=== PATIENT | female | born 1955 | race American Indian/Alaskan Native ===

== ENCOUNTER 2016-11-04 05:03 | Emergency (ER) | payer SELFPAY ==
--- NOTE | 2016-11-04 07:00 | Emergency Department Report ---
Chief Complaint: Sore Throat Stated Complaint: THROAT PAIN Time Seen by Provider: 11/04/16 06:58 - HPI History of Present Illness: Patient family reports that she is having sore throat, neck pain and chest pain over the last couple days. - ROS Review of Systems: All systems are negative unless stated in HPI above. - Exam Vital Signs: Vital Signs 11/04/16 05:17 Temperature 98.7 F Pulse Rate 84 Blood Pressure 155/93 O2 Sat by Pulse 96 Oximetry Respirations of 18 Physical Exam: General: A 51-year-old female, well-nourished well-developed in no acute distress. CV: S1, S2. Regular rate and rhythm. Neck : supple with full ROM MSE screening note: Focused history and physical exam performed. Due to findings the following was ordered: ED Medical Decision Making - Medical Decision Making MDM: Patient's screening by provider, chest pain protocol implemented, strep test is negative. ED Disposition for MSE Condition: Stable Referrals: PRIMARY CARE, [Primary Care Provider] - 3-5 Days
[2016-11-04] MEDS ORDERED: NORCO 5/325 ONE (07:02)
[2016-11-04 07:33] LABS: Basophils % (Auto) 0.6 % (0.0-1.8); Eosinophils % (Auto) 4.1 % (0.0-4.3); Hematocrit 41.7 % (30.3-42.9); Hemoglobin 13.6 gm/dl (10.1-14.3); Mean Corpuscular HGB Conc 33 % (30-34); Mean Corpuscular Hemoglobin 29 pg (28-32); Mean Corpuscular Volume 89 fl (79-97); Platelet Count 169 K/mm3 (140-440); Red Cell Distribution Width 13.4 % (13.2-15.2); White Blood Count 6.2 K/mm3 (4.5-11.0)
--- NOTE | 2016-11-04 07:37 | Emergency Department Report ---
HPI - General Chief Complaint: Sore Throat Time Seen by Provider: 11/04/16 06:58 - HPI HPI: Patient is a 61-year-old female with no past medical history presents to ED complaining of throat pain for several months. Patient states she's been taken to [facility] this past months. Patient states that she began taking 2 Tylenol tablets which didn't became too strong for her so she started taking 1 Tylenol tablets. Patient states she kept taking lozenges and after a while she started feeling me and sternal pain with coughing and sometimes felt that her back. She also admits coughing intermittently which aggravates the sternal chest pain. She denies fevers/chills/nausea/vomiting/abdominal pain/shortness of breath/ dizziness/headache or any other problems. ED Past Medical Hx - Past Medical History Previous Medical History?: No - Surgical History Past Surgical History?: No - Social History Smoking Status: Never Smoker Substance Use Type: None - Medications Home Medications: Home Medications Medication Instructions Recorded Confirmed Last Taken Type Acetamin/Codeine 120-12Mg/5 ml 5 ml PO TID PRN #80 ml 11/04/16 Unknown Rx [Tylenol/Codeine] ED Review of Systems ROS: Stated complaint: THROAT PAIN Other details as noted in HPI Constitutional: denies: chills, fever Eyes: denies: eye pain, eye discharge, vision change ENT: throat pain, congestion. denies: ear pain, dental pain, hearing loss Respiratory: denies: cough, shortness of breath, wheezing Cardiovascular: denies: chest pain, palpitations Endocrine: no symptoms reported Gastrointestinal: denies: abdominal pain, nausea, vomiting, diarrhea Genitourinary: denies: urgency, dysuria, frequency, hematuria, discharge Musculoskeletal: denies: back pain, joint swelling, arthralgia Skin: denies: rash, lesions, pruritus Neurological: denies: headache, weakness, numbness, paresthesias, confusion Psychiatric: denies: anxiety, depression Hematological/Lymphatic: denies: easy bleeding, easy bruising Physical Exam - Physical Exam Vital Signs: Vital Signs 11/04/16 05:17 Temperature 98.7 F Pulse Rate 84 Blood Pressure 155/93 O2 Sat by Pulse 96 Oximetry Physical Exam: GENERAL: Alert and oriented x3, no apparent distress, Normal Gait, atraumatic. HEAD: Head is normocephalic and a-traumatic. MOUTH:Mouth is well hydrated and without lesions. Tonsils nonerythematous or swollen, Uvula midline, Tongue not elevated. Mucous membranes are moist. Posterior pharynx clear, no exudate or lesions. Patent airways. NECK: Supple. Non edematous, No carotid bruits. anterior lymphadenopathy and mild thyromegaly. No C-spine tenderness LUNGS: Symetrical with respiration, No wheezing, no rales or crackles, as infectious lung sounds HEART: S1, S2 present, regular rate and rhythm without murmur, no rubs, no gallops. Non tender to palpation. ABDOMEN: No organomegaly was noted,Positive bowel sounds, soft, and non- distended. Nontender to palpation on all Quadrants, NO CVA tenderness. NEUROLOGIC: The patient is cooperative with no focal neurologic deficits. Cranial nerves II through XII are grossly intact. Normal speech. SKIN: Warm and dry, No lesions, No ulceration or induration present. ED Course Vital Signs 11/04/16 05:17 Temperature 98.7 F Pulse Rate 84 Blood Pressure 155/93 O2 Sat by Pulse 96 Oximetry ED Medical Decision Making - Lab Data Result diagrams: 11/04/16 07:11 11/04/16 07:11 - Radiology Data Radiology results: report reviewed, image reviewed CT NECK WITH CONTRAST: HISTORY: Neck pain, neck mass, narrowing of trachea. TECHNIQUE: Helical CT following IV contrast. Sagittal and coronal reformatted images. FINDINGS: Soft tissue neck x-ray performed earlier today was again reviewed. There is a soft tissue density masslike lesion measuring 4.6 x 2.8 x 7.2 cm. The epicenter of this mass appears to arise from the proximal cervical esophagus. There appears to be severe stenosis of the proximal esophagus from this mass. Less likely this could originate from the larynx. The larynx is displaced anteriorly with obliteration of the piriform sinuses. The epiglottis, vallecula and aryepiglottic folds are grossly normal. The thyroid gland is unremarkable. The salivary glands are symmetric and unremarkable. The vascular structures are patent. No evidence for cervical adenopathy or inflammation. No bony lesion is detected. The imaged brain is unremarkable. The lung apices are clear. IMPRESSION: Neck mass as detailed above which is concerning for a neoplastic process. I suspect this represents a proximal esophageal mass which nearly obstructs. A laryngeal mass could be considered but is thought less likely. Consider direct visualization with EGD. Transcribed By: TTR Dictated By: CRICKET MARIE JR, MD Electronically Authenticated By: CRICKET MARIE JR, MD Signed Date/Time: 11/04/16 1233 - Medical Decision Making 61-year-old female presents with cervical mass ED course: CBC, seen BMP, coags, troponin, chest x-ray, soft tissue neck x-ray also ordered Labs are within normal limits, EKG normal sinus rhythm, x-ray results suggest CT result dressed. CT with contrast ordered. CT with contrast of the neck shows cervical mass 7 x 4.6 cm see results above Discussed all findings of patient. Discussed follow-up with primary care physician as referred. Discussed with the patient that she will need to see special services supervisor as referred and may need further workup of the cervical mass. Patient is alert and oriented 3 she understands instructions given she understands results given Critical care attestation.: If time is entered above; I have spent that time in minutes in the direct care of this critically ill patient, excluding procedure time. ED Disposition Clinical Impression: Cervical mass Disposition: DC-01 TO HOME OR SELFCARE Is pt being admited?: No Does the pt Need Aspirin: No Condition: Stable Instructions: Percutaneous Endoscopic Gastrostomy (ED), Superficial Mass Needle Biopsy (ED) Additional Instructions: Follow-up with her primary care physician. Follow-up with special services supervisor as disclosed for EGD outpatient Prescriptions: Acetamin/Codeine 120-12Mg/5 ml [Tylenol/Codeine] 5 ml PO TID PRN #80 ml PRN Reason: Pain Referrals: PRIMARY MD FIDE [Primary Care Provider] - 3-5 Days LEDY CORLEY MD [Referring] - 3-5 Days ROSA AVERY MD [Referring] - 3-[address] [facility] [Outside] - 3-5 Days [facility] [Outside] - 3-5 Days Forms: Accompanied Note, Work/School Release Form(ED) Time of Disposition: 13:21
[2016-11-04 07:43] LABS: INR 1.01 (0.87-1.13)
[2016-11-04 07:52] LABS: Anion Gap 16 mmol/L; Blood Urea Nitrogen 7 mg/dL (7-17); Calcium 9.5 mg/dL (8.4-10.2); Carbon Dioxide 30 mmol/L (22-30); Chloride 99.4 mmol/L (98-107); Glucose 98 mg/dL (65-100); Potassium 4.2 mmol/L (3.6-5.0); Sodium 141 mmol/L (137-145)
[2016-11-04] MEDS ORDERED: TYLENOL/CODEINE PO ONE (08:33)
--- NOTE | 2016-11-04 09:06 | XRay Report ---
ROUTINE CHEST, TWO VIEWS: HISTORY: chest pain. The trachea, heart, mediastinal contour, lung flood and bony thorax are unremarkable. IMPRESSION: Unremarkable chest x-ray.
--- NOTE | 2016-11-04 09:36 | XRay Report ---
NECK SOFT TISSUE, 2 VIEWS History: Difficulty swallowing, pain. Findings: Moderate to severe prevertebral soft tissue thickening is suspected in the lower cervical region. There may be trace gas within this area of swelling. Abscess is difficult to exclude. There appears to be moderate mass effect and narrowing of the upper trachea on the lateral view. Further evaluation with CT neck with contrast is recommended. Impression: Marked prevertebral soft tissue swelling. Further evaluation with CT neck with contrast is recommended.
[2016-11-04] MEDS ORDERED: NACL ONE (12:12)
--- NOTE | 2016-11-04 12:43 | Cat Scan Report ---
CT NECK WITH CONTRAST: HISTORY: Neck pain, neck mass, narrowing of trachea. TECHNIQUE: Helical CT following IV contrast. Sagittal and coronal reformatted images. FINDINGS: Soft tissue neck x-ray performed earlier today was again reviewed. There is a soft tissue density masslike lesion measuring 4.6 x 2.8 x 7.2 cm. The epicenter of this mass appears to arise from the proximal cervical esophagus. There appears to be severe stenosis of the proximal esophagus from this mass. Less likely this could originate from the larynx. The larynx is displaced anteriorly with obliteration of the piriform sinuses. The epiglottis, vallecula and aryepiglottic folds are grossly normal. The thyroid gland is unremarkable. The salivary glands are symmetric and unremarkable. The vascular structures are patent. No evidence for cervical adenopathy or inflammation. No bony lesion is detected. The imaged brain is unremarkable. The lung apices are clear. IMPRESSION: Neck mass as detailed above which is concerning for a neoplastic process. I suspect this represents a proximal esophageal mass which nearly obstructs. A laryngeal mass could be considered but is thought less likely. Consider direct visualization with EGD.
[2016-11-04 13:55] VITALS: BP 145/91
== END 2016-11-04 13:55 | disposition home or self-care (01) ==
LOC: ED 05:03
DX: R22.1 Localized swelling, mass and lump, neck (principal)
CPT/HCPCS: 36415; 70360; 70491; 71020; 80048; 84484; 85025; 85610; 85730; 87116; 87430; 93005; 93010; 99285; Q9967

== ENCOUNTER 2017-12-25 00:58 | Inpatient (IN) | payer OTHER ==
[2017-12-25] MEDS ORDERED: NACL 0.9% 500 ML 500 ML IV ONE (01:23)
[2017-12-25] MEDS ORDERED: NACL 0.9% 1000 ML IV ONE (01:38)
[2017-12-25] MEDS ORDERED: VANCOMYCIN 2,000 MG in NACL 0.9% 500 ML 500 ML IV ONE (01:50)
--- NOTE | 2017-12-25 01:58 | Emergency Department Report ---
HPI - General Chief Complaint: Dyspnea/Respdistress Time Seen by Provider: 12/25/17 01:37 - HPI HPI: Room 1 The patient is a 62-year-old female presenting with chief complaint of fever. The patient has a history of throat CA and was recently discharged from the hospital after being admitted for pneumonia last week. The patient's spouse states tonight at 22:00 they noticed the fever and brought the patient into the ED for evaluation. Spouse states the patient does not speak secondary to the throat CA/trach so she did not necessarily complain of anything earlier today however she seems slower than normal. He states the patient was in her normal state of health yesterday. The patient has not received chemotherapy for approximately 3-5 months Location: [See above] Duration: Noticed at 22:00 Quality: Fever Severity: Moderate Modifying factors: [see above] Context: [see above] Mode of transportation: [not driving] ED Past Medical Hx - Past Medical History Previous Medical History?: Yes Hx of Cancer: Yes (Throat) Additional medical history: Pneumonia - Surgical History Past Surgical History?: Yes Additional Surgical History: Tracheostomy, Peg-Tube - Family History Family history: no significant - Social History Smoking Status: Never Smoker Substance Use Type: None - Medications Home Medications: Home Medications Medication Instructions Recorded Confirmed Last Taken Type Acetamin/Codeine 120-12Mg/5 ml 5 ml PO TID PRN #80 ml 11/04/16 Unknown Rx [Tylenol/Codeine] ED Review of Systems ROS: Stated complaint: CESAR Other details as noted in HPI Comment: Unobtainable due to pts medical conditions Constitutional: fever Physical Exam - Physical Exam Vital Signs: Vital Signs 12/25/17 12/25/17 01:06 01:40 Temperature 105 F H Pulse Rate 164 H Respiratory 35 H Rate O2 Sat by Pulse 97 97 Oximetry Physical Exam: GENERAL: The patient is well-developed well-nourished female appearing fatigued lying on stretcher. [] HEENT: Normocephalic. Atraumatic. NECK: Trachea midline CHEST/LUNGS: There is no respiratory distress noted. HEART/CARDIOVASCULAR: Regular. There is tachycardia. There is no gallop rub or murmur. ABDOMEN: Abdomen is soft, nontender. Patient has normal bowel sounds. There is no abdominal distention. SKIN: There is no diaphoresis. NEURO: The patient is awake. The patient does raise her hand to shake my hand during the introduction. MUSCULOSKELETAL: T There is no evidence of acute injury. ED Course Vital Signs 12/25/17 12/25/17 01:06 01:40 Temperature 105 F H Pulse Rate 164 H Respiratory 35 H Rate O2 Sat by Pulse 97 97 Oximetry - Consultations Consultation #1: 12/25/17 03:[address] Diop ([facility]) - okay to admit patient at [facility] ED Medical Decision Making - Lab Data Result diagrams: 12/25/17 01:30 12/25/17 01:30 Laboratory Tests 12/25/17 12/25/17 12/25/17 01:30 01:30 01:30 WBC 25.1 H RBC 3.76 Hgb 10.2 Hct 33.3 MCV 89 MCH 27 L MCHC 31 RDW 21.6 H Plt Count 345 Add Manual Diff Complete Total Counted 100 Seg Neuts % (Manual) 91.0 H Band Neutrophils % 0 Lymphocytes % (Manual) 6.0 L Reactive Lymphs % (Man) 0 Monocytes % (Manual) 3.0 Eosinophils % (Manual) 0 Basophils % (Manual) 0 Metamyelocytes % 0 Myelocytes % 0 Promyelocytes % 0 Blast Cells % 0 Nucleated RBC % Not Reportable Seg Neutrophils # Man 22.8 H Band Neutrophils # 0.0 Lymphocytes # (Manual) 1.5 Abs React Lymphs (Man) 0.0 Monocytes # (Manual) 0.8 Eosinophils # (Manual) 0.0 Basophils # (Manual) 0.0 Metamyelocytes # 0.0 Myelocytes # 0.0 Promyelocytes # 0.0 Blast Cells # 0.0 WBC Morphology Not Reportable Hypersegmented Neuts Not Reportable Hyposegmented Neuts Not Reportable Hypogranular Neuts Not Reportable Smudge Cells Not Reportable Toxic Granulation Not Reportable Toxic Vacuolation Not Reportable Dohle Bodies Not Reportable Pelger-Huet Anomaly Not Reportable Lianna Rods Not Reportable Platelet Estimate Not Reportable Clumped Platelets Not Reportable Plt Clumps, EDTA Not Reportable Large Platelets Not Reportable Giant Platelets Not Reportable Platelet Satelliting Not Reportable Plt Morphology Comment Not Reportable RBC Morphology Normal Dimorphic RBCs Not Reportable Polychromasia Not Reportable Hypochromasia Not Reportable Poikilocytosis Not Reportable Anisocytosis Not Reportable Microcytosis Not Reportable Macrocytosis Not Reportable Spherocytes Not Reportable Pappenheimer Bodies Not Reportable Sickle Cells Not Reportable Target Cells Not Reportable Tear Drop Cells Not Reportable Ovalocytes Not Reportable Helmet Cells Not Reportable Rodriguez-[place] Bodies Not Reportable [place] Rings Not Reportable Sarles Cells Not Reportable Bite Cells Not Reportable Crenated Cell Not Reportable Elliptocytes Not Reportable Acanthocytes (Spur) Not Reportable Rouleaux Not Reportable Hemoglobin C Crystals Not Reportable Schistocytes Not Reportable Malaria parasites Not Reportable Edward Bodies Not Reportable Hem Pathologist Commnt No PT 14.7 INR 1.10 VBG pH Sodium 145 Potassium 4.4 Chloride 103.8 Carbon Dioxide 27 Anion Gap 19 BUN 14 Creatinine 1.3 H Estimated GFR 50 BUN/Creatinine Ratio 11 Glucose 122 H Lactic Acid Calcium 8.6 Total Bilirubin 0.30 AST 18 ALT 12 Alkaline Phosphatase 91 Total Protein 7.4 Albumin 2.9 L Albumin/Globulin Ratio 0.6 Urine Color Urine Turbidity Urine pH Ur Specific [place] Urine Protein Urine Glucose (UA) Urine Ketones Urine Blood Urine Nitrite Urine Bilirubin Urine Urobilinogen Ur Leukocyte Esterase Urine WBC (Auto) Urine RBC (Auto) U Epithel Cells (Auto) Urine Bacteria (Auto) 12/25/17 12/25/17 12/25/17 01:30 01:53 03:44 WBC RBC Hgb Hct MCV MCH MCHC RDW Plt Count Add Manual Diff Total Counted Seg Neuts % (Manual) Band Neutrophils % Lymphocytes % (Manual) Reactive Lymphs % (Man) Monocytes % (Manual) Eosinophils % (Manual) Basophils % (Manual) Metamyelocytes % Myelocytes % Promyelocytes % Blast Cells % Nucleated RBC % Seg Neutrophils # Man Band Neutrophils # Lymphocytes # (Manual) Abs React Lymphs (Man) Monocytes # (Manual) Eosinophils # (Manual) Basophils # (Manual) Metamyelocytes # Myelocytes # Promyelocytes # Blast Cells # WBC Morphology Hypersegmented Neuts Hyposegmented Neuts Hypogranular Neuts Smudge Cells Toxic Granulation Toxic Vacuolation Dohle Bodies Pelger-Huet Anomaly Lianna Rods Platelet Estimate Clumped Platelets Plt Clumps, EDTA Large Platelets Giant Platelets Platelet Satelliting Plt Morphology Comment RBC Morphology Dimorphic RBCs Polychromasia Hypochromasia Poikilocytosis Anisocytosis Microcytosis Macrocytosis Spherocytes Pappenheimer Bodies Sickle Cells Target Cells Tear Drop Cells Ovalocytes Helmet Cells Rodriguez-[place] Bodies [place] Rings Yeni Cells Bite Cells Crenated Cell Elliptocytes Acanthocytes (Spur) Rouleaux Hemoglobin C Crystals Schistocytes Malaria parasites Edward Bodies Hem Pathologist Commnt PT INR VBG pH 7.430 H Sodium Potassium Chloride Carbon Dioxide Anion Gap BUN Creatinine Estimated GFR BUN/Creatinine Ratio Glucose Lactic Acid 2.40 H* 1.90 Calcium Total Bilirubin AST ALT Alkaline Phosphatase Total Protein Albumin Albumin/Globulin Ratio Urine Color Urine Turbidity Urine pH Ur Specific [place] Urine Protein Urine Glucose (UA) Urine Ketones Urine Blood Urine Nitrite Urine Bilirubin Urine Urobilinogen Ur Leukocyte Esterase Urine WBC (Auto) Urine RBC (Auto) U Epithel Cells (Auto) Urine Bacteria (Auto) 12/25/17 03:46 WBC RBC Hgb Hct MCV MCH MCHC RDW Plt Count Add Manual Diff Total Counted Seg Neuts % (Manual) Band Neutrophils % Lymphocytes % (Manual) Reactive Lymphs % (Man) Monocytes % (Manual) Eosinophils % (Manual) Basophils % (Manual) Metamyelocytes % Myelocytes % Promyelocytes % Blast Cells % Nucleated RBC % Seg Neutrophils # Man Band Neutrophils # Lymphocytes # (Manual) Abs React Lymphs (Man) Monocytes # (Manual) Eosinophils # (Manual) Basophils # (Manual) Metamyelocytes # Myelocytes # Promyelocytes # Blast Cells # WBC Morphology Hypersegmented Neuts Hyposegmented Neuts Hypogranular Neuts Smudge Cells Toxic Granulation Toxic Vacuolation Dohle Bodies Pelger-Huet Anomaly Lianna Rods Platelet Estimate Clumped Platelets Plt Clumps, EDTA Large Platelets Giant Platelets Platelet Satelliting Plt Morphology Comment RBC Morphology Dimorphic RBCs Polychromasia Hypochromasia Poikilocytosis Anisocytosis Microcytosis Macrocytosis Spherocytes Pappenheimer Bodies Sickle Cells Target Cells Tear Drop Cells Ovalocytes Helmet Cells Rodriguez-[place] Bodies [place] Rings Sarles Cells Bite Cells Crenated Cell Elliptocytes Acanthocytes (Spur) Rouleaux Hemoglobin C Crystals Schistocytes Malaria parasites Edward Bodies Hem Pathologist Commnt PT INR VBG pH Sodium Potassium Chloride Carbon Dioxide Anion Gap BUN Creatinine Estimated GFR BUN/Creatinine Ratio Glucose Lactic Acid Calcium Total Bilirubin AST ALT Alkaline Phosphatase Total Protein Albumin Albumin/Globulin Ratio Urine Color Yellow Urine Turbidity Clear Urine pH 8.0 H Ur Specific [place] 1.006 Urine Protein 30 mg/dl Urine Glucose (UA) Neg Urine Ketones Neg Urine Blood Neg Urine Nitrite Neg Urine Bilirubin Neg Urine Urobilinogen < 2.0 Ur Leukocyte Esterase Tr Urine WBC (Auto) 4.0 Urine RBC (Auto) 2.0 U Epithel Cells (Auto) 1.0 Urine Bacteria (Auto) 1+ - Radiology Data Radiology results: image reviewed (chest x-ray) interpreted by me: Chest x-ray-left lower lobe consolidation, right lower lobe platelike atelectasis - Differential Diagnosis pneumonia, sepsis, UTI Critical care attestation.: If time is entered above; I have spent that time in minutes in the direct care of this critically ill patient, excluding procedure time. ED Disposition Clinical Impression: Sepsis, Fever, Pneumonia Disposition: 09 OP ADMIT IP TO THIS HOSP Is pt being admited?: Yes Does the pt Need Aspirin: No Condition: Serious Instructions: Bacterial Pneumonia (ED) Referrals: PRIMARY CARE, [Primary Care Provider] - 3-5 Days Time of Disposition: 03:42 (hospitalist paged (Dr Horner))
[2017-12-25] MEDS ORDERED: ZOSYN/NS 4.5GM/100ML 4.5 GM/100 ML VIAL IV SCH (02:00)
[2017-12-25 02:03] LABS: Hematocrit 33.3 % (30.3-42.9); Hemoglobin 10.2 gm/dl (10.1-14.3); Mean Corpuscular HGB Conc 31 % (30-34); Mean Corpuscular Hemoglobin 27 pg (28-32); Mean Corpuscular Volume 89 fl (79-97); Red Blood Count 3.76 M/mm3 (3.65-5.03)
[2017-12-25 02:16] LABS: Red Cell Distribution Width 21.6 % (13.2-15.2)
[2017-12-25 02:50] LABS: Albumin 2.9 g/dL (3.9-5); Calcium 8.6 mg/dL (8.4-10.2)
[2017-12-25 03:03] LABS: INR 1.1 (0.87-1.13)
--- NOTE | 2017-12-25 03:04 | XRay Report ---
FINAL REPORT EXAM: XR CHEST 1V AP HISTORY: possible Sepsis TECHNIQUE: AP portable view of the chest. PRIORS: None. FINDINGS: There is a tracheostomy tube in place which appears adequately positioned.The cardiomediastinal silhouette appears normal. There is a linear opacity in the right lung base consistent with subsegmental atelectasis. There is a left basilar opacity consistent with subsegmental atelectasis or infiltrate. The bones and soft tissues are unremarkable. IMPRESSION: 1. Right basilar subsegmental atelectasis 2. The basilar subsegmental atelectasis versus infiltrate
[2017-12-25 03:36] LABS: Basophils % (Manual) 0 % (0.0-1.8); Eosinophils % (Manual) 0 % (0.0-4.3); Total Cells Counted 100
[2017-12-25 03:37] LABS: RBC Morphology Normal
[2017-12-25 03:38] LABS: Platelet Count 345 K/mm3 (140-440)
[2017-12-25 04:19] LABS: Bacteria,Urine 1+ /HPF (Negative); Bilirubin,Urine NEG (Negative); Blood,Urine NEG (Negative); Color,Urine Yellow (Yellow); Urobilinogen,Urine < 2.0 mg/dL (<2.0)
[2017-12-25] MEDS ORDERED: MORPHINE IV PRN (05:56)
[2017-12-25] MEDS ORDERED: ZOFRAN IV PRN (05:56)
[2017-12-25] MEDS ORDERED: SODIUM CHLORIDE FLUSH SYRINGE 10 ML IV PRN (05:56)
[2017-12-25] MEDS ORDERED: TYLENOL PO PRN (05:56)
[2017-12-25] MEDS ORDERED: SOLU-Medrol IV SCH (06:00)
[2017-12-25] MEDS ORDERED: NACL 0.9% 1000 ML 1,000 ML IV SCH (06:00)
[2017-12-25] MEDS ORDERED: VANCOMYCIN PHARMACY TO DOSE IV SCH (06:00)
[2017-12-25] MEDS: SOLU-Medrol IV SCH ×3 (07:04→23:13)
--- NOTE | 2017-12-25 07:18 | History and Physical Report ---
History of Present Illness Date of examination: 12/25/17 Date of admission: 12/25/17 05:56 Chief complaint: Chief complaint: High fever History of present illness: NINILCHIK: 62-year-old female diagnosed with throat cancer 1 year ago and treated with immunotherapy was recently admitted to [facility] for pneumonia and was discharged exactly 1 week ago on Wednesday. Patient has been doing well. Developed high fever in the last 24 hours and shortness of breath. Patient has trach collar. Other than the throat cancer does not have significant past medical history. Cough or trouble mucoid sputum present. No exacerbating or relieving factors. Past Medical History Previous Medical History?: Yes Hx of Cancer: Yes (Throat) Additional medical history: Pneumonia Surgical History Past Surgical History?: Yes Additional Surgical History: Tracheostomy, Peg-Tube Family History Family history: no significant - Social History Smoking Status: Never Smoker Substance Use Type: None - Medications Home Medications: Home Medications Medication Instructions Recorded Confirmed Last Taken Type Acetamin/Codeine 120-12Mg/5 ml 5 ml PO TID PRN #80 ml 11/04/16 Unknown Rx [Tylenol/Codeine] Review of Systems ROS: Stated complaint: CESAR Other details as noted in HPI Comment: Unobtainable due to pts medical conditions Constitutional: fever Medications and Allergies Allergies Allergy/AdvReac Type Severity Reaction Status Date / Time No Known Allergies Allergy Unverified 11/04/16 05:16 Home Medications Medication Instructions Recorded Confirmed Last Taken Type Acetamin/Codeine 120-12Mg/5 ml 5 ml PO TID PRN #80 ml 11/04/16 Unknown Rx [Tylenol/Codeine] Active Meds: Active Medications Acetaminophen (Tylenol) 650 mg PO Q4H PRN PRN Reason: Pain MILD(1-3)/Fever >100.5/VAZQUEZ Albuterol/Ipratropium (Duoneb *Not For Prn Use*) 1 ampul IH QIDRT [facility] Enoxaparin Sodium (Lovenox) 40 mg SUB-Q QDAY [facility]OM Famotidine (Pepcid) 20 mg IV BID TOM Sodium Chloride (Nacl 0.9% 1000 Ml) 1,000 mls @ 100 mls/hr IV DIRECT TOM Piperacillin Sod/Tazobactam Sod (Zosyn/Ns 3.375gm/50ml) 3.375 gm in 50 mls @ 100 mls/hr IV Q6H [facility] Vancomycin HCl 1,500 mg/ (Sodium Chloride) 530 mls @ 333.333 mls/hr IV Q18H [facility] Methylprednisolone Sodium Succinate (Solu-Medrol) 40 mg IV Q8HR [facility] Last Admin: 12/25/17 07:04 Dose: Not Given Morphine Sulfate (Morphine) 2 mg IV Q4H PRN PRN Reason: Pain, Moderate (4-6) Ondansetron HCl (Zofran) 4 mg IV Q8H PRN PRN Reason: Nausea And Vomiting Oxycodone/Acetaminophen (Percocet 5/325) 1 tab PO Q6H PRN PRN Reason: Pain, Moderate (4-6) Sodium Chloride (Sodium Chloride Flush Syringe 10 Ml) 10 ml IV BID [facility] Sodium Chloride (Sodium Chloride Flush Syringe 10 Ml) 10 ml IV PRN PRN PRN Reason: LINE FLUSH Exam - Constitutional Vitals: Temp Pulse Resp BP Pulse Ox 105 F H 104 H 24 103/61 100 12/25/17 01:06 12/25/17 07:00 12/25/17 07:00 12/25/17 07:00 12/25/17 07:00 General appearance: Present: no acute distress, well-nourished - EENT Eyes: Present: PERRL ENT: hearing intact, clear oral mucosa - Neck Neck: Present: supple, normal ROM - Respiratory Respiratory effort: normal Respiratory: bilateral: CTA, rales, rhonchi - Cardiovascular Heart rate: 76 Rhythm: regular Heart Sounds: Present: S1 & S2. Absent: rub, click - Extremities Extremities: pulses symmetrical, No edema Peripheral Pulses: within normal limits - Abdominal General gastrointestinal: Present: soft, non-tender, non-distended, normal bowel sounds Female genitourinary: Present: normal - Integumentary Integumentary: Present: clear, warm, dry - Musculoskeletal Musculoskeletal: gait normal, strength equal bilaterally - Psychiatric Psychiatric: appropriate mood/affect, intact judgment & insight - Neurologic Neurologic: CNII-XII intact, moves all extremities - Allied Health Allied health notes reviewed: nursing, case management Results - Labs CBC & Chem 7: 12/25/17 01:30 12/25/17 01:30 Labs: Laboratory Last Values WBC 25.1 K/mm3 (4.5-11.0) H 12/25/17 01:30 RBC 3.76 M/mm3 (3.65-5.03) 12/25/17 01:30 Hgb 10.2 gm/dl (10.1-14.3) 12/25/17 01:30 Hct 33.3 % (30.3-42.9) 12/25/17 01:30 MCV 89 fl (79-97) 12/25/17 01:30 MCH 27 pg (28-32) L 12/25/17 01:30 MCHC 31 % (30-34) 12/25/17 01:30 RDW 21.6 % (13.2-15.2) H 12/25/17 01:30 Plt Count 345 K/mm3 (140-440) 12/25/17 01:30 Add Manual Diff Complete 12/25/17 01:30 Total Counted 100 12/25/17 01:30 Seg Neuts % (Manual) 91.0 % (40.0-70.0) H 12/25/17 01:30 Band Neutrophils % 0 % 12/25/17 01:30 Lymphocytes % (Manual) 6.0 % (13.4-35.0) L 12/25/17 01:30 Reactive Lymphs % (Man) 0 % 12/25/17 01:30 Monocytes % (Manual) 3.0 % (0.0-7.3) 12/25/17 01:30 Eosinophils % (Manual) 0 % (0.0-4.3) 12/25/17 01:30 Basophils % (Manual) 0 % (0.0-1.8) 12/25/17 01:30 Metamyelocytes % 0 % 12/25/17 01:30 Myelocytes % 0 % 12/25/17 01:30 Promyelocytes % 0 % 12/25/17 01:30 Blast Cells % 0 % 12/25/17 01:30 Nucleated RBC % Not Reportable 12/25/17 01:30 Seg Neutrophils # Man 22.8 K/mm3 (1.8-7.7) H 12/25/17 01:30 Band Neutrophils # 0.0 K/mm3 12/25/17 01:30 Lymphocytes # (Manual) 1.5 K/mm3 (1.2-5.4) 12/25/17 01:30 Abs React Lymphs (Man) 0.0 K/mm3 12/25/17 01:30 Monocytes # (Manual) 0.8 K/mm3 (0.0-0.8) 12/25/17 01:30 Eosinophils # (Manual) 0.0 K/mm3 (0.0-0.4) 12/25/17 01:30 Basophils # (Manual) 0.0 K/mm3 (0.0-0.1) 12/25/17 01:30 Metamyelocytes # 0.0 K/mm3 12/25/17 01:30 Myelocytes # 0.0 K/mm3 12/25/17 01:30 Promyelocytes # 0.0 K/mm3 12/25/17 01:30 Blast Cells # 0.0 K/mm3 12/25/17 01:30 WBC Morphology Not Reportable 12/25/17 01:30 Hypersegmented Neuts Not Reportable 12/25/17 01:30 Hyposegmented Neuts Not Reportable 12/25/17 01:30 Hypogranular Neuts Not Reportable 12/25/17 01:30 Smudge Cells Not Reportable 12/25/17 01:30 Toxic Granulation Not Reportable 12/25/17 01:30 Toxic Vacuolation Not Reportable 12/25/17 01:30 Dohle Bodies Not Reportable 12/25/17 01:30 Pelger-Huet Anomaly Not Reportable 12/25/17 01:30 Lianna Rods Not Reportable 12/25/17 01:30 Platelet Estimate Not Reportable 12/25/17 01:30 Clumped Platelets Not Reportable 12/25/17 01:30 Plt Clumps, EDTA Not Reportable 12/25/17 01:30 Large Platelets Not Reportable 12/25/17 01:30 Giant Platelets Not Reportable 12/25/17 01:30 Platelet Satelliting Not Reportable 12/25/17 01:30 Plt Morphology Comment Not Reportable 12/25/17 01:30 RBC Morphology Normal 12/25/17 01:30 Dimorphic RBCs Not Reportable 12/25/17 01:30 Polychromasia Not Reportable 12/25/17 01:30 Hypochromasia Not Reportable 12/25/17 01:30 Poikilocytosis Not Reportable 12/25/17 01:30 Anisocytosis Not Reportable 12/25/17 01:30 Microcytosis Not Reportable 12/25/17 01:30 Macrocytosis Not Reportable 12/25/17 01:30 Spherocytes Not Reportable 12/25/17 01:30 Pappenheimer Bodies Not Reportable 12/25/17 01:30 Sickle Cells Not Reportable 12/25/17 01:30 Target Cells Not Reportable 12/25/17 01:30 Tear Drop Cells Not Reportable 12/25/17 01:30 Ovalocytes Not Reportable 12/25/17 01:30 Helmet Cells Not Reportable 12/25/17 01:30 [place] Bodies Not Reportable 12/25/17 01:30 Randall Rings Not Reportable 12/25/17 01:30 Yeni Cells Not Reportable 12/25/17 01:30 Bite Cells Not Reportable 12/25/17 01:30 Crenated Cell Not Reportable 12/25/17 01:30 Elliptocytes Not Reportable 12/25/17 01:30 Acanthocytes (Spur) Not Reportable 12/25/17 01:30 Rouleaux Not Reportable 12/25/17 01:30 Hemoglobin C Crystals Not Reportable 12/25/17 01:30 Schistocytes Not Reportable 12/25/17 01:30 Malaria parasites Not Reportable 12/25/17 01:30 Edward Bodies Not Reportable 12/25/17 01:30 Hem Pathologist Commnt No 12/25/17 01:30 PT 14.7 Sec. (12.2-14.9) 12/25/17 01:30 INR 1.10 (0.87-1.13) 12/25/17 01:30 VBG pH 7.430 (7.320-7.420) H 12/25/17 01:53 Sodium 145 mmol/L (137-145) 12/25/17 01:30 Potassium 4.4 mmol/L (3.6-5.0) 12/25/17 01:30 Chloride 103.8 mmol/L (98-107) 12/25/17 01:30 Carbon Dioxide 27 mmol/L (22-30) 12/25/17 01:30 Anion Gap 19 mmol/L 12/25/17 01:30 BUN 14 mg/dL (7-17) 12/25/17 01:30 Creatinine 1.3 mg/dL (0.7-1.2) H 12/25/17 01:30 Estimated GFR 50 ml/min 12/25/17 01:30 BUN/Creatinine Ratio 11 % 12/25/17 01:30 Glucose 122 mg/dL (65-100) H 12/25/17 01:30 Lactic Acid 1.90 mmol/L (0.7-2.0) 12/25/17 03:44 Calcium 8.6 mg/dL (8.4-10.2) 12/25/17 01:30 Total Bilirubin 0.30 mg/dL (0.1-1.2) 12/25/17 01:30 AST 18 units/L (5-40) 12/25/17 01:30 ALT 12 units/L (7-56) 12/25/17 01:30 Alkaline Phosphatase 91 units/L (35-129) 12/25/17 01:30 Total Protein 7.4 g/dL (6.3-8.2) 12/25/17 01:30 Albumin 2.9 g/dL (3.9-5) L 12/25/17 01:30 Albumin/Globulin Ratio 0.6 % 12/25/17 01:30 Urine Color Yellow (Yellow) 12/25/17 03:46 Urine Turbidity Clear (Clear) 12/25/17 03:46 Urine pH 8.0 (5.0-7.0) H 12/25/17 03:46 Ur Specific [place] 1.006 (1.003-1.030) 12/25/17 03:46 Urine Protein 30 mg/dl mg/dL (Negative) 12/25/17 03:46 Urine Glucose (UA) Neg mg/dL (Negative) 12/25/17 03:46 Urine Ketones Neg mg/dL (Negative) 12/25/17 03:46 Urine Blood Neg (Negative) 12/25/17 03:46 Urine Nitrite Neg (Negative) 12/25/17 03:46 Urine Bilirubin Neg (Negative) 12/25/17 03:46 Urine Urobilinogen < 2.0 mg/dL (<2.0) 12/25/17 03:46 Ur Leukocyte Esterase Tr (Negative) 12/25/17 03:46 Urine WBC (Auto) 4.0 /HPF (0.0-6.0) 08/25/18 03:46 Urine RBC (Auto) 2.0 /HPF (0.0-6.0) 12/25/17 03:46 U Epithel Cells (Auto) 1.0 /HPF (0-13.0) 12/25/17 03:46 Urine Bacteria (Auto) 1+ /HPF (Negative) 12/25/17 03:46 - Imaging and Cardiology Chest x-ray: report reviewed Imaging and Cardiology: Chest x-ray FINDINGS: There is a tracheostomy tube in place which appears adequately positioned.The cardiomediastinal silhouette appears normal. There is a linear opacity in the right lung base consistent with subsegmental atelectasis. There is a left basilar opacity consistent with subsegmental atelectasis or infiltrate. The bones and soft tissues are unremarkable. IMPRESSION: 1. Right basilar subsegmental atelectasis 2. The basilar subsegmental atelectasis versus infiltrate Assessment and Plan Advance Directives: Yes (full code) VTE prophylaxis?: Chemical Plan of care discussed with patient/family: Yes - Patient Problems (1) Acute respiratory failure Current Visit: Yes Status: Acute Qualifiers: Respiratory failure complication: hypoxia Qualified Code(s): J96.01 - Acute respiratory failure with hypoxia Plan to address problem: Patient initiated on duo nebs and low-dose Solu-Medrol (2) Sepsis Current Visit: Yes Status: Acute Qualifiers: Sepsis type: sepsis due to unspecified organism Qualified Code(s): A41.9 - Sepsis, unspecified organism Plan to address problem: I reviewed fluids and IV antibiotics in the form of Zosyn and vancomycin ID consult requested (3) Pneumonia Current Visit: Yes Status: Acute Qualifiers: Laterality: bilateral Plan to address problem: IV Zosyn and IV vancomycin (4) Throat cancer Current Visit: Yes Status: Chronic Plan to address problem: follow up with [facility] consult deferred to primary hospitalist team (5) MARCIAL (acute kidney injury) Current Visit: Yes Status: Acute Plan to address problem: Mild IV fluids (6) DVT prophylaxis Current Visit: Yes Status: Acute Plan to address problem: On Lovenox GI prophylaxis initiated
[2017-12-25] MEDS: DUONEB *Not for PRN Use IH SCH ×4 (07:26→21:20)
[2017-12-25] MEDS: PERCOCET 5/325 PO PRN (09:54)
[2017-12-25] MEDS: ZOSYN/NS 3.375GM/50ML 3.375 GM/50 ML BAG IV SCH ×3 (11:10→23:14)
[2017-12-25] MEDS: NACL 0.9% 1000 ML 1,000 ML IV SCH (11:40)
[2017-12-25] MEDS: VANCOMYCIN 1,500 MG in NACL 0.9% 500 ML 500 ML IV SCH ×2 (12:06→18:48)
[2017-12-25] MEDS: SODIUM CHLORIDE FLUSH SYRINGE 10 ML IV SCH ×2 (12:11→23:13)
[2017-12-25] MEDS: PEPCID IV SCH ×2 (12:19→23:13)
[2017-12-25] MEDS: LOVENOX SUB-Q SCH (12:19)
[2017-12-25] MEDS ORDERED: SODIUM BICARBONATE FEEDTUBE PRN ×2 (12:21→13:26)
[2017-12-25] MEDS ORDERED: PANCREAZE DR 10,500 UNIT FEEDTUBE PRN ×2 (12:21→13:26)
[2017-12-25] MEDS ORDERED: SIMPLE SYRUP FEEDTUBE PRN ×4 (12:21→13:26)
--- NOTE | 2017-12-25 13:54 | Consultation ---
History of Present Illness Consult date: 12/25/17 Requesting physician: IVONNE MORRIS Reason for consult: other (Sepsis Syndrome; Acute on Chronic Hypoxemic Respiratory failure) History of present illness: PULMONARY/CCM CONSULT NOTE (Full dictation # [id number]) Please see dictated notes for full details Medications and Allergies Allergies Allergy/AdvReac Type Severity Reaction Status Date / Time No Known Allergies Allergy Unverified 11/04/16 05:16 Home Medications Medication Instructions Recorded Confirmed Last Taken Type Acetamin/Codeine 120-12Mg/5 ml 5 ml PO TID PRN #80 ml 11/04/16 Unknown Rx [Tylenol/Codeine] Active Meds: Active Medications Acetaminophen (Tylenol) 650 mg PO Q4H PRN PRN Reason: Pain MILD(1-3)/Fever >100.5/VAZQUEZ Albuterol/Ipratropium (Duoneb *Not For Prn Use*) 1 ampul IH QIDRT [facility] Last Admin: 12/25/17 11:16 Dose: 1 ampul Lipase/Protease/Amylase ([place] 10,500 Unit) 1 each FEEDTUBE PRN PRN PRN Reason: For Clogged Feeding Tube Lipase/Protease/Amylase ([place] 10,500 Unit) 1 each FEEDTUBE PRN PRN PRN Reason: For Clogged Feeding Tube Enoxaparin Sodium (Lovenox) 40 mg SUB-Q QDAY [facility] Last Admin: 12/25/17 12:19 Dose: 40 mg Famotidine (Pepcid) 20 mg IV BID [facility] Last Admin: 12/25/17 12:19 Dose: 20 mg Piperacillin Sod/Tazobactam Sod (Zosyn/Ns 3.375gm/50ml) 3.375 gm in 50 mls @ 100 mls/hr IV Q6H [facility] Last Admin: 12/25/17 11:10 Dose: 100 mls/hr Vancomycin HCl 1,500 mg/ (Sodium Chloride) 530 mls @ 333.333 mls/hr IV Q18H [facility] Sodium Chloride (Nacl 0.9% 1000 Ml) 1,000 mls @ 75 mls/hr IV DIRECT [facility] Last Admin: 12/25/17 11:40 Dose: 75 mls/hr Methylprednisolone Sodium Succinate (Solu-Medrol) 40 mg IV Q8HR [facility] Last Admin: 12/25/17 07:04 Dose: Not Given Morphine Sulfate (Morphine) 2 mg IV Q4H PRN PRN Reason: Pain, Moderate (4-6) Ondansetron HCl (Zofran) 4 mg IV Q8H PRN PRN Reason: Nausea And Vomiting Last Admin: 12/25/17 09:55 Dose: 4 mg Oxycodone/Acetaminophen (Percocet 5/325) 1 tab PO Q6H PRN PRN Reason: Pain, Moderate (4-6) Last Admin: 12/25/17 09:54 Dose: 1 tab Simple Syrup (Simple Syrup) 15 ml FEEDTUBE PRN PRN PRN Reason: Hypoglycemia Simple Syrup (Simple Syrup) 30 ml FEEDTUBE PRN PRN PRN Reason: Hypoglycemia Simple Syrup (Simple Syrup) 15 ml FEEDTUBE PRN PRN PRN Reason: Hypoglycemia Simple Syrup (Simple Syrup) 30 ml FEEDTUBE PRN PRN PRN Reason: Hypoglycemia Sodium Bicarbonate (Sodium Bicarbonate) 325 mg FEEDTUBE PRN PRN PRN Reason: For Clogged Feeding Tube Sodium Bicarbonate (Sodium Bicarbonate) 325 mg FEEDTUBE PRN PRN PRN Reason: For Clogged Feeding Tube Sodium Chloride (Sodium Chloride Flush Syringe 10 Ml) 10 ml IV BID [facility] Last Admin: 12/25/17 12:11 Dose: 10 ml Sodium Chloride (Sodium Chloride Flush Syringe 10 Ml) 10 ml IV PRN PRN PRN Reason: LINE FLUSH Physical Examination Vital signs: Vital Signs Temp Pulse Resp Pulse Ox 105 F H 164 H 35 H 97 12/25/17 01:06 12/25/17 01:06 12/25/17 01:06 12/25/17 01:06 Results - Laboratory Findings CBC and BMP: 12/25/17 01:30 12/25/17 01:30 PT/INR, D-dimer PT 14.7 Sec. (12.2-14.9) 12/25/17 01:30 INR 1.10 (0.87-1.13) 12/25/17 01:30 Abnormal lab findings: Abnormal Labs 12/25/17 12/25/17 12/25/17 01:30 01:30 01:30 WBC 25.1 H MCH 27 L RDW 21.6 H Seg Neuts % (Manual) 91.0 H Lymphocytes % (Manual) 6.0 L Seg Neutrophils # Man 22.8 H VBG pH Creatinine 1.3 H Glucose 122 H Lactic Acid 2.40 H* Albumin 2.9 L Urine pH 12/25/17 12/25/17 01:53 03:46 WBC MCH RDW Seg Neuts % (Manual) Lymphocytes % (Manual) Seg Neutrophils # Man VBG pH 7.430 H Creatinine Glucose Lactic Acid Albumin Urine pH 8.0 H
--- NOTE | 2017-12-25 17:38 | Event Note ---
Date: 12/25/17 Patient was seen and evaluated this morning, continue management per H&P.
--- NOTE | 2017-12-25 21:11 | Consultation ---
CONSULTING PHYSICIAN: IVONNE MORRIS MD REASON FOR CONSULTATION: Sepsis syndrome, need for ICU admission. CHIEF COMPLAINT AND HISTORY OF PRESENT ILLNESS: The patient is a 62-year-old -[place] female with past medical history significant for head and neck cancer for which she required a tracheostomy placement and has been on radiation therapy. Chemotherapy most recent was about 3-4 months ago. The remembers as at August. She has been at home, living with her trach at home. On the day of presentation, which was last night, her noticed that she had a fever. Tracheal secretions are slightly increased. She was brought into the Emergency Room here for evaluation. He states that about 2 weeks ago, she was admitted at an outside hospital and diagnosed with a pseudomonas pneumonia. When she was evaluated in the ER and consultation was placed. When I stopped by to see her, she was resting in bed, arousable, but looked somnolent, did not really respond to my questions. According to the , no nausea, vomiting, or overt aspiration. The patient is not a current tobacco smoker and described herself as a never smoker at presentation. This really is as much of the history of presentation as I have. PAST MEDICAL HISTORY: 1. History of a head and neck cancer, cancer of the throat. 2. History of pseudomonas pneumonia diagnosed about 2 weeks ago. 3. She is obese. 4. Oropharyngeal dysphagia. PAST SURGICAL HISTORY: She has had a tracheostomy placed. She has had a percutaneous endoscopic gastrostomy tube placed. MEDICATIONS: She was on at the time I stopped by to see her, according to the medication administration record included the following: Tylenol 650 mg p.o. q.4h. p.r.n. mild pain and fevers. Albuterol, DuoNeb treatments nebulized q.i.d., Lovenox 40 mg subcutaneous daily, Pepcid 20 mg IV b.i.d., Solu-Medrol 40 mg IV every 8 hours, Zofran 4 mg IV q. 8 hours p.r.n. nausea and vomiting, morphine sulfate 2 mg IV q. 4 hours p.r.n. moderate pain, Zosyn 3.375 grams IV q.6h. Vancomycin, she received a 1.5 gram dose and that will be scheduled q. 18 hours. ALLERGIES: No known drug allergies. DIET: Obese lady, acute weight loss or gain history is not clear. Her denies significant weight loss, though in the past few months. FAMILY AND SOCIAL HISTORY: Lives at home with her . No alcohol, tobacco, or illicit drug use or abuse. Remote history is unclear. FAMILY HISTORY: Otherwise noncontributory. REVIEW OF SYSTEMS: Difficult to obtain secondary to the patient's medical and mental condition. had denied no gross hematochezia or melena, no gross hematuria, no bloody tracheal secretions. No hematemesis, no seizure activity. Attempts to obtain a complete 13-system review of systems were either as in the body of history above or unobtainable. PHYSICAL EXAMINATION: VITAL SIGNS: At presentation in the ER, she had a temperature of 105 degrees Fahrenheit, pulse of 164, respiratory rate of 35, blood pressure was 118/66, oxygen sats were 97%, inspired oxygen concentration was not recorded at that time. When I saw her O2 sats were about 97% on 0.28 FiO2. Mean arterial pressures all stated above 65 mmHg. GENERAL: She is an elderly looking female, normocephalic. She has the obvious midline tracheostomy tube. She is lying in bed with mildly increased respiratory effort. HEAD, EYES, EARS, NOSE, AND THROAT: She is anicteric. No conjunctival erythema. Grossly, no palpable lymph nodes in the supraclavicular or submandibular lymph node chains. She has the post-radiation changes to her skin. She has a midline Shiley tracheostomy tube with a creamy yellowish exudate in the tube. LUNGS: Auscultation of both lung flood reveals bilateral rhonchi, no wheezing. HEART: Heart sounds 1 and 2 were heard at the time of my evaluation, regular rate and rhythm. No rubs or murmurs. ABDOMEN: Soft, full, bowel sounds are positive, nontender. No palpable hepatosplenomegaly. EXTREMITIES: Without overt clubbing, cyanosis, or pedal edema. NEUROLOGIC: The pupils were equal, round, reactive to light. Extraocular muscle movements could not be adequately assessed. She had spontaneous movements to all 4 extremities. LABORATORY DATA: For my review. Otherwise, as follows: White cell count 25,100, hemoglobin 10.2, hematocrit 33.3, platelet count 345. No band forms reported. INR 1.10. Venous blood gas showed a pH of 7.43. Serum sodium was 145, potassium 4.4, chloride 104, bicarbonate 27, BUN 14, creatinine 1.3, and a glucose of 122. Hemoglobin A1c 5.8. Liver function tests within normal limits except for an albumin of 2.9. Urinalysis negative for nitrites. She did have trace leukocyte esterase with only 4 white cells per high power field. Lactic acid level was within normal limits at 1.9. Two sets of blood cultures have been drawn, they are pending. Radiographic studies have been reviewed. A chest x-ray was done, it essentially shows the tracheostomy tube in good position, left bibasilar atelectatic changes most likely plate-like atelectasis in both lung bases, certainly cannot rule out pneumonia, especially in the left lower lobe region. Evidence of hypoventilation. No gross pneumothorax, no gross bony fracture. ASSESSMENT AND PLAN: 1. [id number] hypoxemic respiratory failure requiring about 40% FiO2 at initial presentation. 2. Abnormal chest x-ray, possible bilateral pneumonia. 3. Sepsis syndrome. 4. Small volume atelectasis bilaterally. 5. History of head and neck cancer, status post chemoradiotherapy. 6. Oropharyngeal dysphagia. 7. Obesity. 8. Leukocytosis. 9. Mild acute kidney injury. 10. Hypoalbuminemia. PLAN: She is looking much more stable at this point and then at initial presentation, no longer breathing labored. Hemodynamically, she is more stable. The pulse has gone from a high of about 164 down to 86 at the time I saw her. The plan will be as follows: 1. We will continue supplemental oxygen to keep sats greater than or equal to about 92-94%. Aspiration precautions will be maintained. Routine trachea bronchodilators and pulmonary toilet will be continued by the respiratory therapist. Bronchodilators will be continued. Empiric antibiotic therapy will be continued and deescalate based on results of clinical and microbiologic data. The Zosyn should provide good antipseudomonal coverage. Enteral nutrition will be the feeding modality of choice. It should be continued on her home tube feeds if we do have here. Otherwise, nutrition consult will be placed. I note, she is on Solu-Medrol. It is unclear the indication for this. I will begin tapering her Solu-Medrol dose. I doubt we are dealing with a chronic obstructive pulmonary disease exacerbation at this point. She is appropriately on gastrointestinal and deep venous thrombosis prophylaxis. Flu and pneumonia vaccination will be addressed per protocol. I will go ahead and downgrade her to the telemetry floor. Thank you very much for the consult, Dr. Gonzalez. We will follow along. We will make further recommendations as picture progresses/becomes clearer. JOB# [id number] AJM/NTS
[2017-12-26] MEDS: PERCOCET 5/325 PO PRN ×2 (00:05→19:31)
[2017-12-26] MEDS: ZOSYN/NS 3.375GM/50ML 3.375 GM/50 ML BAG IV SCH ×4 (04:50→21:35)
[2017-12-26] MEDS: SOLU-Medrol IV SCH ×3 (06:28→21:36)
[2017-12-26] MEDS: DUONEB *Not for PRN Use IH SCH ×4 (07:13→20:26)
[2017-12-26 08:03] LABS: Hematocrit 27.7 % (30.3-42.9); Hemoglobin 8.7 gm/dl (10.1-14.3); Mean Corpuscular HGB Conc 31 % (30-34); Mean Corpuscular Hemoglobin 28 pg (28-32); Mean Corpuscular Volume 89 fl (79-97); Platelet Count 332 K/mm3 (140-440); Red Blood Count 3.11 M/mm3 (3.65-5.03)
[2017-12-26] MEDS: NACL 0.9% 1000 ML 1,000 ML IV SCH (08:15)
[2017-12-26 08:27] LABS: Red Cell Distribution Width 21.8 % (13.2-15.2)
--- NOTE | 2017-12-26 08:59 | Progress Note ---
Assessment and Plan Assessment and plan: 62-year-old -[place] female with past medical history significant for head and neck cancer, status post trach presented to the emergency department for the complaints of fever, increased secretion and difficulty of breathing. Patient was recently admitted to another hospital for pneumonia Acute hypoxic respiratory failure - Patient is on trach - Oxygen support - Trach care - Pulmonary critical care consult appreciated Sepsis secondary to Bilateral pneumonia, history of Pseudomonas infection - Patient is on IV Zosyn and vancomycin - Leukocytosis History of head and neck cancer Obesity Dysphagia DVT prophylaxis - On Lovenox Disposition - Continue inpatient care History Interval history: Patient was seen and evaluated at the bedside, patient is on trach Hospitalist Physical - Physical exam Narrative exam: Patient is on trach. The patient appeared well nourished and normally developed. Vital signs as documented. Head exam is unremarkable. No scleral icterus . Neck is without jugular venous distension, thyromegaly, or carotid bruits. Lungs are clear to auscultation. Cardiac exam reveals regular rate and Rhythm. First and second heart sounds normal. No murmurs, rubs or gallops. Abdominal exam reveals normal bowel sounds, no masses, no organomegaly and no aortic enlargement. Extremities are nonedematous and both femoral and pedal pulses are normal. GLUE MIXER: Alert and oriented 3. No focal weakness. - Constitutional Vitals: Temp Pulse Resp BP Pulse Ox 97.5 F L 73 20 107/66 97 12/26/17 05:10 12/26/17 07:59 12/26/17 05:10 12/26/17 05:10 12/26/17 05:10 General appearance: Present: no acute distress, well-nourished Results - Labs CBC & Chem 7: 12/26/17 06:46 12/26/17 06:46 Labs: Laboratory Last Values WBC 24.1 K/mm3 (4.5-11.0) H 12/26/17 06:46 RBC 3.11 M/mm3 (3.65-5.03) L 12/26/17 06:46 Hgb 8.7 gm/dl (10.1-14.3) L 12/26/17 06:46 Hct 27.7 % (30.3-42.9) L 12/26/17 06:46 MCV 89 fl (79-97) 12/26/17 06:46 MCH 28 pg (28-32) 12/26/17 06:46 MCHC 31 % (30-34) 12/26/17 06:46 RDW 21.8 % (13.2-15.2) H 12/26/17 06:46 Plt Count 332 K/mm3 (140-440) 12/26/17 06:46 Add Manual Diff Complete 12/25/17 01:30 Total Counted 100 12/25/17 01:30 Seg Neutrophils % Hand Mounter 12/26/17 06:46 Seg Neuts % (Manual) 91.0 % (40.0-70.0) H 12/25/17 01:30 Band Neutrophils % 0 % 12/25/17 01:30 Lymphocytes % (Manual) 6.0 % (13.4-35.0) L 12/25/17 01:30 Reactive Lymphs % (Man) 0 % 12/25/17 01:30 Monocytes % (Manual) 3.0 % (0.0-7.3) 12/25/17 01:30 Eosinophils % (Manual) 0 % (0.0-4.3) 12/25/17 01:30 Basophils % (Manual) 0 % (0.0-1.8) 12/25/17 01:30 Metamyelocytes % 0 % 12/25/17 01:30 Myelocytes % 0 % 12/25/17 01:30 Promyelocytes % 0 % 12/25/17 01:30 Blast Cells % 0 % 12/25/17 01:30 Nucleated RBC % Not Reportable 12/25/17 01:30 Seg Neutrophils # Man 22.8 K/mm3 (1.8-7.7) H 12/25/17 01:30 Band Neutrophils # 0.0 K/mm3 12/25/17 01:30 Lymphocytes # (Manual) 1.5 K/mm3 (1.2-5.4) 12/25/17 01:30 Abs React Lymphs (Man) 0.0 K/mm3 12/25/17 01:30 Monocytes # (Manual) 0.8 K/mm3 (0.0-0.8) 12/25/17 01:30 Eosinophils # (Manual) 0.0 K/mm3 (0.0-0.4) 12/25/17 01:30 Basophils # (Manual) 0.0 K/mm3 (0.0-0.1) 12/25/17 01:30 Metamyelocytes # 0.0 K/mm3 12/25/17 01:30 Myelocytes # 0.0 K/mm3 12/25/17 01:30 Promyelocytes # 0.0 K/mm3 12/25/17 01:30 Blast Cells # 0.0 K/mm3 12/25/17 01:30 WBC Morphology Not Reportable 12/25/17 01:30 Hypersegmented Neuts Not Reportable 12/25/17 01:30 Hyposegmented Neuts Not Reportable 12/25/17 01:30 Hypogranular Neuts Not Reportable 12/25/17 01:30 Smudge Cells Not Reportable 12/25/17 01:30 Toxic Granulation Not Reportable 12/25/17 01:30 Toxic Vacuolation Not Reportable 12/25/17 01:30 Dohle Bodies Not Reportable 12/25/17 01:30 Pelger-Huet Anomaly Not Reportable 12/25/17 01:30 Lianna Rods Not Reportable 12/25/17 01:30 Platelet Estimate Not Reportable 12/25/17 01:30 Clumped Platelets Not Reportable 12/25/17 01:30 Plt Clumps, EDTA Not Reportable 12/25/17 01:30 Large Platelets Not Reportable 12/25/17 01:30 Giant Platelets Not Reportable 12/25/17 01:30 Platelet Satelliting Not Reportable 12/25/17 01:30 Plt Morphology Comment Not Reportable 12/25/17 01:30 RBC Morphology Normal 12/25/17 01:30 Dimorphic RBCs Not Reportable 12/25/17 01:30 Polychromasia Not Reportable 12/25/17 01:30 Hypochromasia Not Reportable 12/25/17 01:30 Poikilocytosis Not Reportable 12/25/17 01:30 Anisocytosis Not Reportable 12/25/17 01:30 Microcytosis Not Reportable 12/25/17 01:30 Macrocytosis Not Reportable 12/25/17 01:30 Spherocytes Not Reportable 12/25/17 01:30 Pappenheimer Bodies Not Reportable 12/25/17 01:30 Sickle Cells Not Reportable 12/25/17 01:30 Target Cells Not Reportable 12/25/17 01:30 Tear Drop Cells Not Reportable 12/25/17 01:30 Ovalocytes Not Reportable 12/25/17 01:30 Helmet Cells Not Reportable 12/25/17 01:30 [place] Bodies Not Reportable 12/25/17 01:30 Willet Rings Not Reportable 12/25/17 01:30 Yeni Cells Not Reportable 12/25/17 01:30 Bite Cells Not Reportable 12/25/17 01:30 Crenated Cell Not Reportable 12/25/17 01:30 Elliptocytes Not Reportable 12/25/17 01:30 Acanthocytes (Spur) Not Reportable 12/25/17 01:30 Rouleaux Not Reportable 12/25/17 01:30 Hemoglobin C Crystals Not Reportable 12/25/17 01:30 Schistocytes Not Reportable 12/25/17 01:30 Malaria parasites Not Reportable 12/25/17 01:30 Edward Bodies Not Reportable 12/25/17 01:30 Hem Pathologist Commnt No 12/25/17 01:30 PT 14.7 Sec. (12.2-14.9) 12/25/17 01:30 INR 1.10 (0.87-1.13) 12/25/17 01:30 VBG pH 7.430 (7.320-7.420) H 12/25/17 01:53 Sodium 145 mmol/L (137-145) 12/25/17 01:30 Potassium 4.4 mmol/L (3.6-5.0) 12/25/17 01:30 Chloride 103.8 mmol/L (98-107) 12/25/17 01:30 Carbon Dioxide 27 mmol/L (22-30) 12/25/17 01:30 Anion Gap 19 mmol/L 12/25/17 01:30 BUN 14 mg/dL (7-17) 12/25/17 01:30 Creatinine 1.3 mg/dL (0.7-1.2) H 12/25/17 01:30 Estimated GFR 50 ml/min 12/25/17 01:30 BUN/Creatinine Ratio 11 % 12/25/17 01:30 Glucose 122 mg/dL (65-100) H 12/25/17 01:30 Hemoglobin A1c 5.8 % (4-6) 12/25/17 01:23 Lactic Acid 1.90 mmol/L (0.7-2.0) 12/25/17 03:44 Calcium 8.6 mg/dL (8.4-10.2) 12/25/17 01:30 Total Bilirubin 0.30 mg/dL (0.1-1.2) 12/25/17 01:30 AST 18 units/L (5-40) 12/25/17 01:30 ALT 12 units/L (7-56) 12/25/17 01:30 Alkaline Phosphatase 91 units/L (35-129) 12/25/17 01:30 Total Protein 7.4 g/dL (6.3-8.2) 12/25/17 01:30 Albumin 2.9 g/dL (3.9-5) L 12/25/17 01:30 Albumin/Globulin Ratio 0.6 % 12/25/17 01:30 Urine Color Yellow (Yellow) 12/25/17 03:46 Urine Turbidity Clear (Clear) 12/25/17 03:46 Urine pH 8.0 (5.0-7.0) H 12/25/17 03:46 Ur Specific [place] 1.006 (1.003-1.030) 12/25/17 03:46 Urine Protein 30 mg/dl mg/dL (Negative) 12/25/17 03:46 Urine Glucose (UA) Neg mg/dL (Negative) 12/25/17 03:46 Urine Ketones Neg mg/dL (Negative) 12/25/17 03:46 Urine Blood Neg (Negative) 12/25/17 03:46 Urine Nitrite Neg (Negative) 12/25/17 03:46 Urine Bilirubin Neg (Negative) 12/25/17 03:46 Urine Urobilinogen < 2.0 mg/dL (<2.0) 12/25/17 03:46 Ur Leukocyte Esterase Tr (Negative) 12/25/17 03:46 Urine WBC (Auto) 4.0 /HPF (0.0-6.0) 12/25/17 03:46 Urine RBC (Auto) 2.0 /HPF (0.0-6.0) 12/25/17 03:46 U Epithel Cells (Auto) 1.0 /HPF (0-13.0) 12/25/17 03:46 Urine Bacteria (Auto) 1+ /HPF (Negative) 12/25/17 03:46
[2017-12-26 09:05] LABS: Alanine Aminotransferase 8 units/L (7-56); Albumin 2.1 g/dL (3.9-5); BUN/Creatinine Ratio 15; Blood Urea Nitrogen 16 mg/dL (7-17); Calcium 7.6 mg/dL (8.4-10.2); Hemolysis Index 1
[2017-12-26] MEDS: LOVENOX SUB-Q SCH (10:48)
[2017-12-26] MEDS: PEPCID IV SCH ×2 (10:49→21:36)
[2017-12-26] MEDS: SODIUM CHLORIDE FLUSH SYRINGE 10 ML IV SCH ×2 (11:49→21:36)
[2017-12-26 13:10] LABS: Band Neutrophils # (Manual) 0.2 K/mm3; Basophils % (Manual) 0 % (0.0-1.8); Eosinophils % (Manual) 0 % (0.0-4.3); Monocytes % (Manual) 0 % (0.0-7.3); Total Cells Counted 100
[2017-12-26 13:11] LABS: Anisocytosis 1+; Platelet Estimate Cons; Toxic Granulation 2+
--- NOTE | 2017-12-26 13:27 | Progress Note ---
Assessment and Plan [id number] hypoxemic respiratory failure requiring about 40% FiO2 at initial presentation. Abnormal chest x-ray, possible bilateral pneumonia. Sepsis syndrome. Small volume atelectasis bilaterally. History of head and neck cancer, status post chemoradiotherapy. Oropharyngeal dysphagia. Obesity. Leukocytosis. Mild acute kidney injury. Hypoalbuminemia. - continue empiric anti-pseudomonal AB's coverage - ID consult placed - continue routine trach care, bronchodilators and pulmonary hygiene per RT - enteral nutrition as tolerated - continue aspiration precautions - continue supplemental oxygen to keep sats > 90% - PT/OT/ROM exercises as tolerated - continue mobility protocol for pressure ulcer prophylaxis - continue GI & VTE prophylaxis - continue other care per attending / other consultants .... re-evaluate in am & prn .... 35' Subjective Date of service: 12/26/17 Principal diagnosis: Ac on Ch Hypoxemic Resp Failure; Sepsis [place]; Pneumonia ; H&N Cancer Interval history: Patient is seen today for: Acute on Chronic Hypoxemic Resp Failure; Sepsis [place]; Pneumonia; H&N Cancer Seen and examined at bedside; 24hour events reviewed; nursing and respiratory care staff consulted; no adverse overnight events reported to me; resting peacefully in bed; no emesis or overt aspiration; no gross tracheal bleeding; fevers improved Objective Vital Signs - 12hr 12/26/17 12/26/17 05:10 07:59 Temperature 97.5 F L Pulse Rate 80 73 Respiratory 20 Rate Blood Pressure 107/66 O2 Sat by Pulse 97 Oximetry Constitutional: appears uncomfortable, other (Obese AAF normocephalic with increased respiratory effort without extrimis) Eyes: non-icteric ENT: oropharynx moist, other (mallampati 3) Neck: supple, no lymphadenopathy, no JVD, other (Midline tracheostomy) Effort: mildly labored Ascultation: Bilateral: diminished breath sounds, rhonchi (bases) Percussion: Bilateral: not dull Cardiovascular: regular rate and rhythm, other (No R/M) Gastrointestinal: normoactive bowel sounds, soft, non-tender, non-distended, other (PEG tube) Integumentary: normal Extremities: no cyanosis, no edema, pulses normal, no ischemia or petechiae Neurologic: non-focal exam (grossly), pupils equal and round, CN II-XII normal Psychiatric: other (unable to assess) CBC and BMP: 12/27/17 10:06 12/27/17 10:06 ABG, PT/INR, D-dimer: PT/INR, D-dimer PT 14.7 Sec. (12.2-14.9) 12/25/17 01:30 INR 1.10 (0.87-1.13) 12/25/17 01:30 Abnormal lab findings: Abnormal Labs 12/25/17 12/25/17 12/25/17 01:30 01:30 01:30 WBC 25.1 H RBC Hgb Hct MCH 27 L RDW 21.6 H Seg Neuts % (Manual) 91.0 H Lymphocytes % (Manual) 6.0 L Seg Neutrophils # Man 22.8 H Lymphocytes # (Manual) VBG pH Sodium Chloride Carbon Dioxide Creatinine 1.3 H Glucose 122 H Lactic Acid 2.40 H* Calcium Albumin 2.9 L Urine pH 12/25/17 12/25/17 12/26/17 01:53 03:46 06:46 WBC 24.1 H RBC 3.11 L Hgb 8.7 L Hct 27.7 L MCH RDW 21.8 H Seg Neuts % (Manual) 95.0 H Lymphocytes % (Manual) 4.0 L Seg Neutrophils # Man 22.9 H Lymphocytes # (Manual) 1.0 L VBG pH 7.430 H Sodium Chloride Carbon Dioxide Creatinine Glucose Lactic Acid Calcium Albumin Urine pH 8.0 H 12/26/17 06:46 WBC RBC Hgb Hct MCH RDW Seg Neuts % (Manual) Lymphocytes % (Manual) Seg Neutrophils # Man Lymphocytes # (Manual) VBG pH Sodium 149 H Chloride 114.8 H Carbon Dioxide 20 L D Creatinine Glucose 163 H Lactic Acid Calcium 7.6 L Albumin 2.1 L Urine pH Chest x-ray: pending Allied health notes reviewed: nursing
[2017-12-26] MEDS: VANCOMYCIN 1,500 MG in NACL 0.9% 500 ML 500 ML IV SCH (13:49)
--- NOTE | 2017-12-26 14:23 | Consultation ---
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 Per family trach secretion has decreased. During recent admission she was noted to cough up tube feeds from trach. 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 CXR with bilateral infiltrate, treated initially with was on zosyn, switched to cefepime due to elevated sodium level, sputum cx grew Pseudomona aerugnosa, klebsiella and Strep. Noted to have renal insufficiency. At discharge she was prescribed cipro and flagyl per GJ tube to end on 12/25. In the ED, temp 105, HR 164, R 35, BP 118/66. WBC 25. Hg 10.2. Plat 345. Creat 1.3. Lactate 2.4. UA neg. CXR bibasilar atelectasis vs infltrates Microbiology: Blood cultures: 12/25 ngtd Urine cultures: 12/25 ngtd Respiratory cultures: Current Antimicrobials: Zosyn vanco Previous Antimicrobials: Medications and Allergies Allergies Allergy/AdvReac Type Severity Reaction Status Date / Time No Known Allergies Allergy Unverified 11/04/16 05:16 Home Medications Medication Instructions Recorded Confirmed Last Taken Type Acetamin/Codeine 120-12Mg/5 ml 5 ml PO TID PRN #80 ml 11/04/16 12/25/17 Unknown Rx [Tylenol/Codeine] Oxycodone HCl [oxyCODONE TAB] 10 mg PO Q6H PRN 12/25/17 12/25/17 12/24/17 History Active Meds: Active Medications Acetaminophen (Tylenol) 650 mg PO Q4H PRN PRN Reason: Pain MILD(1-3)/Fever >100.5/VAZQUEZ Albuterol/Ipratropium (Duoneb *Not For Prn Use*) 1 ampul QIDRT [facility] Last Admin: 12/26/17 12:02 Dose: 1 ampul Lipase/Protease/Amylase (Pancreaze Dr 10,500 Unit) 1 each FEEDTUBE PRN PRN PRN Reason: For Clogged Feeding Tube Enoxaparin Sodium (Lovenox) 40 mg SUB-Q QDAY [facility] Last Admin: 12/26/17 10:48 Dose: 40 mg Famotidine (Pepcid) 20 mg IV BID [facility] Last Admin: 12/26/17 10:49 Dose: 20 mg Piperacillin Sod/Tazobactam Sod (Zosyn/Ns 3.375gm/50ml) 3.375 gm in 50 mls @ 100 mls/hr IV Q6H [facility] Last Admin: 12/26/17 11:49 Dose: 100 mls/hr Vancomycin HCl 1,500 mg/ (Sodium Chloride) 530 mls @ 333.333 mls/hr IV Q18H [facility] Last Admin: 12/25/17 18:48 Dose: Not Given Sodium Chloride (Nacl 0.9% 1000 Ml) 1,000 mls @ 75 mls/hr IV DIRECT [facility] Last Admin: 12/26/17 08:15 Dose: 75 mls/hr Levothyroxine Sodium (Synthroid) 150 mcg PO DAILY@0600 [facility] Methylprednisolone Sodium Succinate (Solu-Medrol) 40 mg IV Q8HR [facility] Last Admin: 12/26/17 06:28 Dose: 40 mg Morphine Sulfate (Morphine) 2 mg IV Q4H PRN PRN Reason: Pain, Moderate (4-6) Ondansetron HCl (Zofran) 4 mg IV Q8H PRN PRN Reason: Nausea And Vomiting Last Admin: 12/25/17 09:55 Dose: 4 mg Oxycodone/Acetaminophen (Percocet 5/325) 1 tab PO Q6H PRN PRN Reason: Pain, Moderate (4-6) Last Admin: 12/26/17 00:05 Dose: 1 tab Simple Syrup (Simple Syrup) 15 ml FEEDTUBE PRN PRN PRN Reason: Hypoglycemia Simple Syrup (Simple Syrup) 30 ml FEEDTUBE PRN PRN PRN Reason: Hypoglycemia Sodium Bicarbonate (Sodium Bicarbonate) 325 mg FEEDTUBE PRN PRN PRN Reason: For Clogged Feeding Tube Sodium Chloride (Sodium Chloride Flush Syringe 10 Ml) 10 ml IV BID [facility] Last Admin: 12/25/17 23:13 Dose: 10 ml Sodium Chloride (Sodium Chloride Flush Syringe 10 Ml) 10 ml IV PRN PRN PRN Reason: LINE FLUSH Review of Systems All systems: negative (as per HPI) Physical Examination - Physical Exam Narrative exam: General appearance: Alert in NAD, following cmmands Eyes: anicteric sclerae, moist conjunctivae; no lid-lag; PERRLA HENT: Atraumatic; oropharynx clear Neck: Trach in place Lungs: dylon rhonchi CV: tachy Abdomen: Soft, non-tender;PEG Extremities: No peripheral edema or extremity lymphadenopathy Skin: Normal temperature, turgor and texture; no rash, ulcers or subcutaneous nodules Psych: Appropriate affect, alert and oriented to person, place and time. Neuro: alert and oriented x 3. Moving all extermities Lines: No CVL / PICC - Constitutional Vitals: Vital Signs Temp Pulse Resp BP Pulse Ox 98.0 F 79 18 106/62 98 12/26/17 08:00 12/26/17 08:00 12/26/17 08:00 12/26/17 08:00 12/26/17 08:00 Temperature -Last 24 Hours Temperature 98.0 F Temperature 97.5 F Temperature 97.3 F Temperature 97.4 F Results - Labs CBC & Chem 7: 12/26/17 06:46 12/26/17 06:46 Labs: Abnormal lab results 12/26/17 12/26/17 Range/Units 06:46 06:46 WBC 24.1 H (4.5-11.0) K/mm3 RBC 3.11 L (3.65-5.03) M/mm3 Hgb 8.7 L (10.1-14.3) gm/dl Hct 27.7 L (30.3-42.9) % RDW 21.8 H (13.2-15.2) % Seg Neuts % (Manual) 95.0 H (40.0-70.0) % Lymphocytes % (Manual) 4.0 L (13.4-35.0) % Seg Neutrophils # Man 22.9 H (1.8-7.7) K/mm3 Lymphocytes # (Manual) 1.0 L (1.2-5.4) K/mm3 Sodium 149 H (137-145) mmol/L Chloride 114.8 H (98-107) mmol/L Carbon Dioxide 20 L D (22-30) mmol/L Glucose 163 H (65-100) mg/dL Calcium 7.6 L (8.4-10.2) mg/dL Albumin 2.1 L (3.9-5) g/dL Assessment and Plan Assessment: 1) Sepsis: Present on admission, manifested by fever, tachycardia, leukocytosis , increased lactate. Etiology most likely recurrent vs persistent pneumonia. 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 CXR with bilateral infiltrate, treated initially with was on zosyn, switched to cefepime due to elevated sodium level, sputum cx grew Pseudomona aerugnosa, klebsiella and Strep group F . At discharge she was prescribed cipro and flagyl per GJ tube to end on 12/25. 5) MARCIAL - better Plan: -obtain sputum cx -obtain chest CT -CRP -continue zosyn and vanco for now -monitor creatinine Thank you for your consultation, will follow up with you. Joy Quinones MD Infectious Diseases Specialist [facility] M [phone] O [phone]
[2017-12-27] MEDS: PERCOCET 5/325 PO PRN ×4 (03:13→18:29)
[2017-12-27] MEDS: ZOSYN/NS 3.375GM/50ML 3.375 GM/50 ML BAG IV SCH ×4 (03:14→22:00)
[2017-12-27] MEDS: VANCOMYCIN 1,500 MG in NACL 0.9% 500 ML 500 ML IV SCH (05:45)
[2017-12-27] MEDS: SYNTHROID PO SCH (05:46)
[2017-12-27] MEDS: SOLU-Medrol IV SCH ×3 (05:46→22:00)
[2017-12-27] MEDS: NACL 0.9% 1000 ML 1,000 ML IV SCH (07:39)
[2017-12-27] MEDS: DUONEB *Not for PRN Use IH SCH ×4 (08:51→20:10)
[2017-12-27] MEDS: LOVENOX SUB-Q SCH (09:35)
--- NOTE | 2017-12-27 09:38 | Progress Note ---
Assessment and Plan Assessment and plan: 62-year-old -D[place] female with past medical history significant for head and neck cancer, status post trach presented to the emergency department for the complaints of fever, increased secretion and difficulty of breathing. Patient was recently admitted to another hospital for pneumonia Acute hypoxic respiratory failure - Patient is on trach - Oxygen support - Trach care - Pulmonary critical care consult appreciated Sepsis secondary to Bilateral pneumonia, history of Pseudomonas infection - Patient is on IV Zosyn and vancomycin - Leukocytosis - ID consult appreciated MARCIAL - Resolved History of head and neck cancer Obesity Dysphagia DVT prophylaxis - On Lovenox Disposition - Continue inpatient care History Interval history: Patient was seen and evaluated at the bedside, patient is on trach, lying comfortably on the bed. Hospitalist Physical - Physical exam Narrative exam: Patient is on trach. The patient appeared well nourished and normally developed. Vital signs as documented. Head exam is unremarkable. No scleral icterus . Neck is without jugular venous distension, thyromegaly, or carotid bruits. Lungs are clear to auscultation. Cardiac exam reveals regular rate and Rhythm. First and second heart sounds normal. No murmurs, rubs or gallops. Abdominal exam reveals normal bowel sounds, no masses, no organomegaly and no aortic enlargement. Extremities are nonedematous and both femoral and pedal pulses are normal. SECURITY OFFICER: Alert and oriented 3. No focal weakness. - Constitutional Vitals: Temp Pulse Resp BP Pulse Ox 98.3 F 79 16 153/73 99 12/27/17 07:56 12/27/17 07:56 12/27/17 07:56 12/27/17 07:56 12/27/17 07:56 General appearance: Present: no acute distress, well-nourished Results - Labs CBC & Chem 7: 12/27/17 10:06 12/27/17 10:06 Labs: Laboratory Last Values WBC 24.1 K/mm3 (4.5-11.0) H 12/26/17 06:46 RBC 3.11 M/mm3 (3.65-5.03) L 12/26/17 06:46 Hgb 8.7 gm/dl (10.1-14.3) L 12/26/17 06:46 Hct 27.7 % (30.3-42.9) L 12/26/17 06:46 MCV 89 fl (79-97) 12/26/17 06:46 MCH 28 pg (28-32) 12/26/17 06:46 MCHC 31 % (30-34) 12/26/17 06:46 RDW 21.8 % (13.2-15.2) H 12/26/17 06:46 Plt Count 332 K/mm3 (140-440) 12/26/17 06:46 Add Manual Diff Complete 12/26/17 06:46 Total Counted 100 12/26/17 06:46 Seg Neutrophils % Manager Cardiovascular 12/26/17 06:46 Seg Neuts % (Manual) 95.0 % (40.0-70.0) H 12/26/17 06:46 Band Neutrophils % 1.0 % 12/26/17 06:46 Lymphocytes % (Manual) 4.0 % (13.4-35.0) L 12/26/17 06:46 Reactive Lymphs % (Man) 0 % 12/26/17 06:46 Monocytes % (Manual) 0 % (0.0-7.3) 12/26/17 06:46 Eosinophils % (Manual) 0 % (0.0-4.3) 12/26/17 06:46 Basophils % (Manual) 0 % (0.0-1.8) 12/26/17 06:46 Metamyelocytes % 0 % 12/26/17 06:46 Myelocytes % 0 % 12/26/17 06:46 Promyelocytes % 0 % 12/26/17 06:46 Blast Cells % 0 % 12/26/17 06:46 Nucleated RBC % Not Reportable 12/26/17 06:46 Seg Neutrophils # Man 22.9 K/mm3 (1.8-7.7) H 12/26/17 06:46 Band Neutrophils # 0.2 K/mm3 12/26/17 06:46 Lymphocytes # (Manual) 1.0 K/mm3 (1.2-5.4) L 12/26/17 06:46 Abs React Lymphs (Man) 0.0 K/mm3 12/26/17 06:46 Monocytes # (Manual) 0.0 K/mm3 (0.0-0.8) 12/26/17 06:46 Eosinophils # (Manual) 0.0 K/mm3 (0.0-0.4) 12/26/17 06:46 Basophils # (Manual) 0.0 K/mm3 (0.0-0.1) 12/26/17 06:46 Metamyelocytes # 0.0 K/mm3 12/26/17 06:46 Myelocytes # 0.0 K/mm3 12/26/17 06:46 Promyelocytes # 0.0 K/mm3 12/26/17 06:46 Blast Cells # 0.0 K/mm3 12/26/17 06:46 WBC Morphology Not Reportable 12/26/17 06:46 Hypersegmented Neuts Not Reportable 12/26/17 06:46 Hyposegmented Neuts Not Reportable 12/26/17 06:46 Hypogranular Neuts Not Reportable 12/26/17 06:46 Smudge Cells Not Reportable 12/26/17 06:46 Toxic Granulation 2+ 12/26/17 06:46 Toxic Vacuolation Not Reportable 12/26/17 06:46 Dohle Bodies Not Reportable 12/26/17 06:46 Pelger-Huet Anomaly Not Reportable 12/26/17 06:46 Lianna Rods Not Reportable 12/26/17 06:46 Platelet Estimate Cons 12/26/17 06:46 Clumped Platelets Not Reportable 12/26/17 06:46 Plt Clumps, EDTA Not Reportable 12/26/17 06:46 Large Platelets Not Reportable 12/26/17 06:46 Giant Platelets Not Reportable 12/26/17 06:46 Platelet Satelliting Not Reportable 12/26/17 06:46 Plt Morphology Comment Not Reportable 12/26/17 06:46 RBC Morphology Not Reportable 12/26/17 06:46 Dimorphic RBCs Not Reportable 12/26/17 06:46 Polychromasia Not Reportable 12/26/17 06:46 Hypochromasia Not Reportable 12/26/17 06:46 Poikilocytosis Not Reportable 12/26/17 06:46 Anisocytosis 1+ 12/26/17 06:46 Microcytosis Not Reportable 12/26/17 06:46 Macrocytosis Not Reportable 12/26/17 06:46 Spherocytes Not Reportable 12/26/17 06:46 Pappenheimer Bodies Not Reportable 12/26/17 06:46 Sickle Cells Not Reportable 12/26/17 06:46 Target Cells Not Reportable 12/26/17 06:46 Tear Drop Cells Not Reportable 12/26/17 06:46 Ovalocytes Not Reportable 12/26/17 06:46 Helmet Cells Not Reportable 12/26/17 06:46 [place] Bodies Not Reportable 12/26/17 06:46 [place] Rings Not Reportable 12/26/17 06:46 [place] Cells Not Reportable 12/26/17 06:46 Bite Cells Not Reportable 12/26/17 06:46 Crenated Cell Not Reportable 12/26/17 06:46 Elliptocytes Not Reportable 12/26/17 06:46 Acanthocytes (Spur) Not Reportable 12/26/17 06:46 Rouleaux Not Reportable 12/26/17 06:46 Hemoglobin C Crystals Not Reportable 12/26/17 06:46 Schistocytes Not Reportable 12/26/17 06:46 Malaria parasites Not Reportable 12/26/17 06:46 Edward Bodies Not Reportable 12/26/17 06:46 Hem Pathologist Commnt No 12/26/17 06:46 PT 14.7 Sec. (12.2-14.9) 12/25/17 01:30 INR 1.10 (0.87-1.13) 12/25/17 01:30 VBG pH 7.430 (7.320-7.420) H 12/25/17 01:53 Sodium 149 mmol/L (137-145) H 12/26/17 06:46 Potassium 4.4 mmol/L (3.6-5.0) 12/26/17 06:46 Chloride 114.8 mmol/L (98-107) H 12/26/17 06:46 Carbon Dioxide 20 mmol/L (22-30) L D 12/26/17 06:46 Anion Gap 19 mmol/L 12/26/17 06:46 BUN 16 mg/dL (7-17) 12/26/17 06:46 Creatinine 1.1 mg/dL (0.7-1.2) 12/26/17 06:46 Estimated GFR > 60 ml/min 12/26/17 06:46 BUN/Creatinine Ratio 15 % 12/26/17 06:46 Glucose 163 mg/dL (65-100) H 12/26/17 06:46 Hemoglobin A1c 5.8 % (4-6) 12/25/17 01:23 Lactic Acid 1.90 mmol/L (0.7-2.0) 12/25/17 03:44 Calcium 7.6 mg/dL (8.4-10.2) L 12/26/17 06:46 Total Bilirubin 0.20 mg/dL (0.1-1.2) 12/26/17 06:46 AST 14 units/L (5-40) 12/26/17 06:46 ALT 8 units/L (7-56) 12/26/17 06:46 Alkaline Phosphatase 73 units/L (35-129) 12/26/17 06:46 Total Protein 6.7 g/dL (6.3-8.2) 12/26/17 06:46 Albumin 2.1 g/dL (3.9-5) L 12/26/17 06:46 Albumin/Globulin Ratio 0.5 % 12/26/17 06:46 Urine Color Yellow (Yellow) 12/25/17 03:46 Urine Turbidity Clear (Clear) 12/25/17 03:46 Urine pH 8.0 (5.0-7.0) H 12/25/17 03:46 Ur Specific [place] 1.006 (1.003-1.030) 12/25/17 03:46 Urine Protein 30 mg/dl mg/dL (Negative) 12/25/17 03:46 Urine Glucose (UA) Neg mg/dL (Negative) 12/25/17 03:46 Urine Ketones Neg mg/dL (Negative) 12/25/17 03:46 Urine Blood Neg (Negative) 12/25/17 03:46 Urine Nitrite Neg (Negative) 12/25/17 03:46 Urine Bilirubin Neg (Negative) 12/25/17 03:46 Urine Urobilinogen < 2.0 mg/dL (<2.0) 12/25/17 03:46 Ur Leukocyte Esterase Tr (Negative) 12/25/17 03:46 Urine WBC (Auto) 4.0 /HPF (0.0-6.0) 12/25/17 03:46 Urine RBC (Auto) 2.0 /HPF (0.0-6.0) 12/25/17 03:46 U Epithel Cells (Auto) 1.0 /HPF (0-13.0) 12/25/17 03:46 Urine Bacteria (Auto) 1+ /HPF (Negative) 12/25/17 03:46
[2017-12-27] MEDS: PEPCID PO SCH ×2 (10:07→22:00)
[2017-12-27] MEDS: SODIUM CHLORIDE FLUSH SYRINGE 10 ML IV SCH ×2 (10:08→22:00)
[2017-12-27 10:29] LABS: Hematocrit 25.7 % (30.3-42.9); Hemoglobin 8.2 gm/dl (10.1-14.3); Mean Corpuscular HGB Conc 32 % (30-34); Mean Corpuscular Hemoglobin 28 pg (28-32); Mean Corpuscular Volume 89 fl (79-97); Platelet Count 311 K/mm3 (140-440); Red Blood Count 2.89 M/mm3 (3.65-5.03)
[2017-12-27 10:34] LABS: Red Cell Distribution Width 21.4 % (13.2-15.2)
[2017-12-27 10:45] LABS: BUN/Creatinine Ratio 19; Blood Urea Nitrogen 19 mg/dL (7-17); Calcium 7.3 mg/dL (8.4-10.2); Hemolysis Index 2
[2017-12-27 11:59] LABS: Basophils % (Manual) 0 % (0.0-1.8); Eosinophils % (Manual) 0 % (0.0-4.3); Total Cells Counted 200
[2017-12-27 12:00] LABS: Anisocytosis 1+; Platelet Estimate Cons; Toxic Granulation 3+
--- NOTE | 2017-12-27 13:18 | Progress Note ---
Assessment and Plan [id number] hypoxemic respiratory failure requiring about 40% FiO2 at initial presentation. Abnormal chest x-ray, possible bilateral pneumonia. Sepsis syndrome. Small volume atelectasis bilaterally. History of head and neck cancer, status post chemoradiotherapy. Oropharyngeal dysphagia. Obesity. Leukocytosis. Mild acute kidney injury. Hypoalbuminemia. - continue empiric anti-pseudomonal AB's coverage - ID consult placed - continue routine trach care, bronchodilators and pulmonary hygiene per RT - enteral nutrition as tolerated - continue aspiration precautions - continue supplemental oxygen to keep sats > 90% - PT/OT/ROM exercises as tolerated - continue mobility protocol for pressure ulcer prophylaxis - continue GI & VTE prophylaxis - continue other care per attending / other consultants .... re-evaluate in am & prn .... 35' Subjective Date of service: 12/27/17 Principal diagnosis: Ac on Ch Hypoxemic Resp Failure; Sepsis [place]; Pneumonia ; H&N Cancer Interval history: Patient is seen today for: Acute on Chronic Hypoxemic Resp Failure; Sepsis [place]; Pneumonia; H&N Cancer Seen and examined at bedside; 24hour events reviewed; nursing and respiratory care staff consulted; no adverse overnight events reported to me; resting peacefully in bed; Objective Vital Signs - 12hr 12/27/17 12/27/17 12/27/17 03:13 04:15 07:56 Temperature 97.8 F 98.3 F Pulse Rate 76 79 Pulse Rate [ Anterior Bilateral Throughout] Respiratory 22 20 16 Rate Respiratory Rate [Anterior Bilateral Throughout] Blood Pressure 121/68 Blood Pressure 153/73 [Right] O2 Sat by Pulse 95 99 Oximetry O2 Sat by Pulse Oximetry [ Assessment] 12/27/17 12/27/17 12/27/17 08:51 09:01 10:00 Temperature Pulse Rate 79 Pulse Rate [ 68 72 Anterior Bilateral Throughout] Respiratory 20 Rate Respiratory 18 18 Rate [Anterior Bilateral Throughout] Blood Pressure Blood Pressure [Right] O2 Sat by Pulse 98 97 Oximetry O2 Sat by Pulse 98 Oximetry [ Assessment] 12/27/17 12:42 Temperature Pulse Rate Pulse Rate [ 75 Anterior Bilateral Throughout] Respiratory Rate Respiratory 20 Rate [Anterior Bilateral Throughout] Blood Pressure Blood Pressure [Right] O2 Sat by Pulse Oximetry O2 Sat by Pulse Oximetry [ Assessment] Constitutional: appears uncomfortable, other (Obese AAF normocephalic with increased respiratory effort without extrimis) Eyes: non-icteric ENT: oropharynx moist, other (mallampati 3) Neck: supple, no lymphadenopathy, no JVD, other (Midline tracheostomy) Effort: mildly labored Ascultation: Bilateral: diminished breath sounds, rhonchi (bases) Percussion: Bilateral: not dull Cardiovascular: regular rate and rhythm, other (No R/M) Gastrointestinal: normoactive bowel sounds, soft, non-tender, non-distended, other (PEG tube) Integumentary: normal Extremities: no cyanosis, no edema, pulses normal, no ischemia or petechiae Neurologic: non-focal exam (grossly), pupils equal and round, CN II-XII normal Psychiatric: other (unable to assess) CBC and BMP: 12/27/17 10:06 12/27/17 10:06 ABG, PT/INR, D-dimer: PT/INR, D-dimer PT 14.7 Sec. (12.2-14.9) 12/25/17 01:30 INR 1.10 (0.87-1.13) 12/25/17 01:30 Abnormal lab findings: Abnormal Labs 12/25/17 12/25/17 12/25/17 01:30 01:30 01:30 WBC 25.1 H RBC Hgb Hct MCH 27 L RDW 21.6 H Seg Neuts % (Manual) 91.0 H Lymphocytes % (Manual) 6.0 L Seg Neutrophils # Man 22.8 H Lymphocytes # (Manual) VBG pH Sodium Chloride Carbon Dioxide BUN Creatinine 1.3 H Glucose 122 H Lactic Acid 2.40 H* Calcium Albumin 2.9 L Urine pH 12/25/17 12/25/17 12/26/17 01:53 03:46 06:46 WBC 24.1 H RBC 3.11 L Hgb 8.7 L Hct 27.7 L MCH RDW 21.8 H Seg Neuts % (Manual) 95.0 H Lymphocytes % (Manual) 4.0 L Seg Neutrophils # Man 22.9 H Lymphocytes # (Manual) 1.0 L VBG pH 7.430 H Sodium Chloride Carbon Dioxide BUN Creatinine Glucose Lactic Acid Calcium Albumin Urine pH 8.0 H 12/26/17 12/27/17 12/27/17 06:46 10:06 10:06 WBC 25.7 H RBC 2.89 L Hgb 8.2 L Hct 25.7 L MCH RDW 21.4 H Seg Neuts % (Manual) 96.0 H Lymphocytes % (Manual) 1.0 L Seg Neutrophils # Man 24.7 H Lymphocytes # (Manual) 0.3 L VBG pH Sodium 149 H 146 H Chloride 114.8 H 115.4 H Carbon Dioxide 20 L D 20 L BUN 19 H Creatinine Glucose 163 H 154 H Lactic Acid Calcium 7.6 L 7.3 L Albumin 2.1 L Urine pH Allied health notes reviewed: nursing
[2017-12-27] MEDS ORDERED: PANCREAZE DR 10,500 UNIT FEEDTUBE PRN (15:11)
[2017-12-27] MEDS ORDERED: SIMPLE SYRUP FEEDTUBE PRN ×2 (15:11)
[2017-12-27] MEDS ORDERED: SODIUM BICARBONATE FEEDTUBE PRN (15:11)
--- NOTE | 2017-12-27 17:42 | Progress Note ---
Assessment and Plan Assessment: 1) Sepsis: better. Etiology most likely recurrent vs persistent pneumonia. 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 CXR with bilateral infiltrate, treated initially with was on zosyn, switched to cefepime due to elevated sodium level, sputum cx grew Pseudomona aerugnosa, klebsiella and Strep group F . At discharge she was prescribed cipro and flagyl per GJ tube to end on 12/25. 5) MARCIAL - better Plan: -f/u sputum cx -obtain chest CT -CRP -continue zosyn and vanco for now -monitor creatinine -per ?fistula was fixed at OSH Thank you for your consultation, will follow up with you. Joy Quinones MD Infectious Diseases Specialist [facility] M [phone] [id number] [phone] Subjective Date of service: 12/27/17 Principal diagnosis: Ac on Ch Hypoxemic Resp Failure; Sepsis [place]; Pneumonia ; H&N Cancer Interval history: feels better. no fever Microbiology: Blood cultures: 12/25 ngtd Urine cultures: 12/25 ngtd Respiratory cultures: 12/26 pend Current Antimicrobials: Zosyn vanco Objective - Exam Narrative Exam: General appearance: Alert in NAD, following cmmands Eyes: anicteric sclerae, moist conjunctivae; no lid-lag; PERRLA HENT: Atraumatic; oropharynx clear Neck: Trach in place Lungs: dylon rhonchi CV: tachy Abdomen: Soft, non-tender;PEG Extremities: No peripheral edema or extremity lymphadenopathy Skin: Normal temperature, turgor and texture; no rash, ulcers or subcutaneous nodules Psych: Appropriate affect, alert and oriented to person, place and time. Neuro: alert and oriented x 3. Moving all extermities Lines: No CVL / PICC - Constitutional Vitals: Vital Signs Temp Pulse Resp BP Pulse Ox 98.2 F 75 20 143/63 98 12/27/17 16:46 12/27/17 16:46 12/27/17 16:46 12/27/17 16:46 12/27/17 16:46 Temperature -Last 24 Hours Temperature 98.2 F Temperature 98.3 F Temperature 97.8 F Temperature 97.4 F Temperature 97.6 F - Labs CBC & Chem 7: 12/27/17 10:06 12/27/17 10:06 Labs: Abnormal lab results 12/27/17 12/27/17 12/27/17 Range/Units 10:06 10:06 12:31 WBC 25.7 H (4.5-11.0) K/mm3 RBC 2.89 L (3.65-5.03) M/mm3 Hgb 8.2 L (10.1-14.3) gm/dl Hct 25.7 L (30.3-42.9) % RDW 21.4 H (13.2-15.2) % Seg Neuts % (Manual) 96.0 H (40.0-70.0) % Lymphocytes % (Manual) 1.0 L (13.4-35.0) % Seg Neutrophils # Man 24.7 H (1.8-7.7) K/mm3 Lymphocytes # (Manual) 0.3 L (1.2-5.4) K/mm3 Sodium 146 H (137-145) mmol/L Chloride 115.4 H (98-107) mmol/L Carbon Dioxide 20 L (22-30) mmol/L BUN 19 H (7-17) mg/dL Glucose 154 H (65-100) mg/dL POC Glucose 149 H (70-105) Calcium 7.3 L (8.4-10.2) mg/dL
--- NOTE | 2017-12-27 20:50 | Cat Scan Report ---
FINAL REPORT PROCEDURE: CT CHEST W CON TECHNIQUE: Computerized axial tomography of the chest was performed during the IV injection of iodinated nonionic contrast. HISTORY: to evauate for tracheoesophageal fistula COMPARISON: No prior studies are available for comparison. TECHNICAL QUALITY: Satisfactory. FINDINGS: A tracheostomy tube is in place terminating in the distal trachea. Subsegmental atelectatic changes are noted involving right lung. There is moderate degree atelectasis of the left lower lobe there are no obvious mass lesions in bilateral lungs. Hilar structures are within normal limits. Aorta is of normal caliber. A left paratracheal mass lesion is identified which is encasing the left carotid artery measuring 4.9 x 3.6 x 6.7 centimeters in AP, transverse and craniocaudal dimensions. Thyroid is not distinctly visualized. Evaluation of the upper abdominal structures is limited due to streak artifacts from the arms. A gastrostomy tube is in place. Vertebral height is normal.. IMPRESSION: Large left paratracheal mass encasing the left carotid artery. 2. Moderate degree atelectatic changes of left lower lobe. Any underlying infiltrates cannot be excluded. A tracheostomy tube is in place. An oral contrast study or endoscopy may be necessary to evaluate for tracheoesophageal fistula.
[2017-12-28] MEDS: VANCOMYCIN 1,500 MG in NACL 0.9% 500 ML 500 ML IV SCH (00:01)
[2017-12-28] MEDS: ZOSYN/NS 3.375GM/50ML 3.375 GM/50 ML BAG IV SCH ×4 (04:30→23:50)
[2017-12-28] MEDS: SYNTHROID PO SCH (05:30)
[2017-12-28] MEDS: SOLU-Medrol IV SCH ×3 (05:30→22:00)
[2017-12-28] MEDS: VANCOMYCIN 1,250 MG in NACL 0.9% 250ML 250 ML IV SCH (06:00)
--- NOTE | 2017-12-28 08:47 | Progress Note ---
Assessment and Plan Assessment and plan: 62-year-old -Niue[place] female with past medical history significant for head and neck cancer, status post trach presented to the emergency department for the complaints of fever, increased secretion and difficulty of breathing. Patient was recently admitted to another hospital for pneumonia Acute hypoxic respiratory failure - Patient is on trach - Oxygen support - Trach care - Pulmonary critical care consult appreciated We'll do an esophagogram to assess tracheoesophageal fistula Sepsis secondary to Bilateral pneumonia, history of Pseudomonas infection - Patient is on IV Zosyn and vancomycin - Leukocytosis - ID consult appreciated MARCIAL - Resolved History of head and neck cancer Obesity Dysphagia DVT prophylaxis - On Lovenox Disposition - Continue inpatient care History Interval history: Patient was seen and evaluated at the bedside, patient is on trach, lying comfortably on the bed. Hospitalist Physical - Physical exam Narrative exam: Patient is on trach. The patient appeared well nourished and normally developed. Vital signs as documented. Head exam is unremarkable. No scleral icterus . Neck is without jugular venous distension, thyromegaly, or carotid bruits. Lungs are clear to auscultation. Cardiac exam reveals regular rate and Rhythm. First and second heart sounds normal. No murmurs, rubs or gallops. Abdominal exam reveals normal bowel sounds, no masses, no organomegaly and no aortic enlargement. Extremities are nonedematous and both femoral and pedal pulses are normal. WEIGHTS AND MEASURES INSPECTOR: Alert and oriented 3. No focal weakness. - Constitutional Vitals: Temp Pulse Resp BP Pulse Ox 98.4 F 61 20 136/65 100 12/28/17 07:21 12/28/17 07:21 12/28/17 07:21 12/28/17 07:21 12/28/17 07:21 General appearance: Present: no acute distress, well-nourished Results - Labs CBC & Chem 7: 12/27/17 10:06 12/27/17 10:06 Labs: Laboratory Last Values WBC 25.7 K/mm3 (4.5-11.0) H 12/27/17 10:06 RBC 2.89 M/mm3 (3.65-5.03) L 12/27/17 10:06 Hgb 8.2 gm/dl (10.1-14.3) L 12/27/17 10:06 Hct 25.7 % (30.3-42.9) L 12/27/17 10:06 MCV 89 fl (79-97) 12/27/17 10:06 MCH 28 pg (28-32) 12/27/17 10:06 MCHC 32 % (30-34) 12/27/17 10:06 RDW 21.4 % (13.2-15.2) H 12/27/17 10:06 Plt Count 311 K/mm3 (140-440) 12/27/17 10:06 Add Manual Diff Complete 12/27/17 10:06 Total Counted 200 12/27/17 10:06 Seg Neutrophils % Testing Coordinator 12/26/17 06:46 Seg Neuts % (Manual) 96.0 % (40.0-70.0) H 12/27/17 10:06 Band Neutrophils % 0 % 12/27/17 10:06 Lymphocytes % (Manual) 1.0 % (13.4-35.0) L 12/27/17 10:06 Reactive Lymphs % (Man) 0 % 12/27/17 10:06 Monocytes % (Manual) 3.0 % (0.0-7.3) 12/27/17 10:06 Eosinophils % (Manual) 0 % (0.0-4.3) 12/27/17 10:06 Basophils % (Manual) 0 % (0.0-1.8) 12/27/17 10:06 Metamyelocytes % 0 % 12/27/17 10:06 Myelocytes % 0 % 12/27/17 10:06 Promyelocytes % 0 % 12/27/17 10:06 Blast Cells % 0 % 12/27/17 10:06 Nucleated RBC % Not Reportable 12/27/17 10:06 Seg Neutrophils # Man 24.7 K/mm3 (1.8-7.7) H 12/27/17 10:06 Band Neutrophils # 0.0 K/mm3 12/27/17 10:06 Lymphocytes # (Manual) 0.3 K/mm3 (1.2-5.4) L 12/27/17 10:06 Abs React Lymphs (Man) 0.0 K/mm3 12/27/17 10:06 Monocytes # (Manual) 0.8 K/mm3 (0.0-0.8) 12/27/17 10:06 Eosinophils # (Manual) 0.0 K/mm3 (0.0-0.4) 12/27/17 10:06 Basophils # (Manual) 0.0 K/mm3 (0.0-0.1) 12/27/17 10:06 Metamyelocytes # 0.0 K/mm3 12/27/17 10:06 Myelocytes # 0.0 K/mm3 12/27/17 10:06 Promyelocytes # 0.0 K/mm3 12/27/17 10:06 Blast Cells # 0.0 K/mm3 12/27/17 10:06 WBC Morphology Not Reportable 12/27/17 10:06 Hypersegmented Neuts Not Reportable 12/27/17 10:06 Hyposegmented Neuts Not Reportable 12/27/17 10:06 Hypogranular Neuts Not Reportable 12/27/17 10:06 Smudge Cells Not Reportable 12/27/17 10:06 Toxic Granulation 3+ 12/27/17 10:06 Toxic Vacuolation Not Reportable 12/27/17 10:06 Dohle Bodies Not Reportable 12/27/17 10:06 Pelger-Huet Anomaly Not Reportable 12/27/17 10:06 Lianna Rods Not Reportable 12/27/17 10:06 Platelet Estimate Cons 12/27/17 10:06 Clumped Platelets Not Reportable 12/27/17 10:06 Plt Clumps, EDTA Not Reportable 12/27/17 10:06 Large Platelets Not Reportable 12/27/17 10:06 Giant Platelets Not Reportable 12/27/17 10:06 Platelet Satelliting Not Reportable 12/27/17 10:06 Plt Morphology Comment Not Reportable 12/27/17 10:06 RBC Morphology Not Reportable 12/27/17 10:06 Dimorphic RBCs Not Reportable 12/27/17 10:06 Polychromasia Not Reportable 12/27/17 10:06 Hypochromasia Not Reportable 12/27/17 10:06 Poikilocytosis Not Reportable 12/27/17 10:06 Anisocytosis 1+ 12/27/17 10:06 Microcytosis Not Reportable 12/27/17 10:06 Macrocytosis Not Reportable 12/27/17 10:06 Spherocytes Not Reportable 12/27/17 10:06 Pappenheimer Bodies Not Reportable 12/27/17 10:06 Sickle Cells Not Reportable 12/27/17 10:06 Target Cells Not Reportable 12/27/17 10:06 Tear Drop Cells Not Reportable 12/27/17 10:06 Ovalocytes Not Reportable 12/27/17 10:06 Helmet Cells Not Reportable 12/27/17 10:06 [place] Bodies Not Reportable 12/27/17 10:06 [place] Rings Not Reportable 12/27/17 10:06 [place] Cells Not Reportable 12/27/17 10:06 Bite Cells Not Reportable 12/27/17 10:06 Crenated Cell Not Reportable 12/27/17 10:06 Elliptocytes Not Reportable 12/27/17 10:06 Acanthocytes (Spur) Not Reportable 12/27/17 10:06 Rouleaux Not Reportable 12/27/17 10:06 Hemoglobin C Crystals Not Reportable 12/27/17 10:06 Schistocytes Not Reportable 12/27/17 10:06 Malaria parasites Not Reportable 12/27/17 10:06 Edward Bodies Not Reportable 12/27/17 10:06 Hem Pathologist Commnt No 12/27/17 10:06 PT 14.7 Sec. (12.2-14.9) 12/25/17 01:30 INR 1.10 (0.87-1.13) 12/25/17 01:30 VBG pH 7.430 (7.320-7.420) H 12/25/17 01:53 Sodium 146 mmol/L (137-145) H 12/27/17 10:06 Potassium 4.2 mmol/L (3.6-5.0) 12/27/17 10:06 Chloride 115.4 mmol/L (98-107) H 12/27/17 10:06 Carbon Dioxide 20 mmol/L (22-30) L 12/27/17 10:06 Anion Gap 15 mmol/L 12/27/17 10:06 BUN 19 mg/dL (7-17) H 12/27/17 10:06 Creatinine 1.0 mg/dL (0.7-1.2) 12/27/17 10:06 Estimated GFR > 60 ml/min 12/27/17 10:06 BUN/Creatinine Ratio 19 % 12/27/17 10:06 Glucose 154 mg/dL (65-100) H 12/27/17 10:06 POC Glucose 149 (70-105) H 12/27/17 12:31 Hemoglobin A1c 5.8 % (4-6) 12/25/17 01:23 Lactic Acid 1.90 mmol/L (0.7-2.0) 12/25/17 03:44 Calcium 7.3 mg/dL (8.4-10.2) L 12/27/17 10:06 Total Bilirubin 0.20 mg/dL (0.1-1.2) 12/26/17 06:46 AST 14 units/L (5-40) 12/26/17 06:46 ALT 8 units/L (7-56) 12/26/17 06:46 Alkaline Phosphatase 73 units/L (35-129) 12/26/17 06:46 Total Protein 6.7 g/dL (6.3-8.2) 12/26/17 06:46 Albumin 2.1 g/dL (3.9-5) L 12/26/17 06:46 Albumin/Globulin Ratio 0.5 % 12/26/17 06:46 Urine Color Yellow (Yellow) 12/25/17 03:46 Urine Turbidity Clear (Clear) 12/25/17 03:46 Urine pH 8.0 (5.0-7.0) H 12/25/17 03:46 Ur Specific [place] 1.006 (1.003-1.030) 12/25/17 03:46 Urine Protein 30 mg/dl mg/dL (Negative) 12/25/17 03:46 Urine Glucose (UA) Neg mg/dL (Negative) 12/25/17 03:46 Urine Ketones Neg mg/dL (Negative) 12/25/17 03:46 Urine Blood Neg (Negative) 12/25/17 03:46 Urine Nitrite Neg (Negative) 12/25/17 03:46 Urine Bilirubin Neg (Negative) 12/25/17 03:46 Urine Urobilinogen < 2.0 mg/dL (<2.0) 12/25/17 03:46 Ur Leukocyte Esterase Tr (Negative) 12/25/17 03:46 Urine WBC (Auto) 4.0 /HPF (0.0-6.0) 12/25/17 03:46 Urine RBC (Auto) 2.0 /HPF (0.0-6.0) 12/25/17 03:46 U Epithel Cells (Auto) 1.0 /HPF (0-13.0) 12/25/17 03:46 Urine Bacteria (Auto) 1+ /HPF (Negative) 12/25/17 03:46 Vancomycin Trough 20.7 ug/mL (5.0-20.0) H 12/27/17 23:14
[2017-12-28 09:22] LABS: Hematocrit 27.8 % (30.3-42.9); Hemoglobin 8.7 gm/dl (10.1-14.3); Mean Corpuscular HGB Conc 31 % (30-34); Mean Corpuscular Hemoglobin 28 pg (28-32); Mean Corpuscular Volume 91 fl (79-97); Platelet Count 299 K/mm3 (140-440); Red Blood Count 3.08 M/mm3 (3.65-5.03)
[2017-12-28] MEDS: DUONEB *Not for PRN Use IH SCH ×4 (09:23→20:27)
[2017-12-28 09:25] LABS: Red Cell Distribution Width 21.2 % (13.2-15.2)
[2017-12-28 09:38] LABS: BUN/Creatinine Ratio 22; Blood Urea Nitrogen 22 mg/dL (7-17); Calcium 7.8 mg/dL (8.4-10.2); Hemolysis Index 2
[2017-12-28] MEDS: LOVENOX SUB-Q SCH (12:05)
[2017-12-28] MEDS: PEPCID PO SCH ×2 (12:05→23:50)
--- NOTE | 2017-12-28 13:39 | Progress Note ---
Assessment and Plan [id number] hypoxemic respiratory failure requiring about 40% FiO2 at initial presentation. Abnormal chest x-ray, possible bilateral pneumonia( recurrent HCAP). Sepsis syndrome. Small volume atelectasis bilaterally. History of head and neck cancer, status post chemoradiotherapy. 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 Leukocytosis. Mild acute kidney injury. Hypoalbuminemia. - continue empiric anti-pseudomonal AB's coverage - continue routine trach care, bronchodilators and pulmonary hygiene per RT - enteral nutrition as tolerated - continue aspiration precautions - continue supplemental oxygen to keep sats > 90% - PT/OT/ROM exercises as tolerated - continue mobility protocol for pressure ulcer prophylaxis - continue GI & VTE prophylaxis - continue other care per attending / other consultants Recurrent pneumonia will probably be an ongoing concern in the patient. Subjective Date of service: 12/28/17 Principal diagnosis: Ac on Ch Hypoxemic Resp Failure; Sepsis Syndroe; Pneumonia ; H&N Cancer Interval history: Patient is seen today for: Acute on Chronic Hypoxemic Resp Failure; Sepsis Syndroe; Pneumonia; H&N Cancer Seen and examined at bedside; 24hour events reviewed; nursing and respiratory care staff consulted; no adverse overnight events reported to me; resting peacefully in bed. Family at the bedside and reports she coughed a lot over night. s/p trachesotmy on ATP, some thick secretions on suctioning Objective Vital Signs - 12hr 12/28/17 12/28/17 12/28/17 04:27 07:21 08:00 Temperature 98.4 F 98.4 F Pulse Rate 62 61 Pulse Rate [ Anterior Bilateral Throughout] Pulse Rate [ Posterior Bilateral] Respiratory 20 20 Rate Respiratory Rate [Anterior Bilateral Throughout] Respiratory Rate [Posterior Bilateral] Blood Pressure 133/77 136/65 O2 Sat by Pulse 99 100 Oximetry O2 Sat by Pulse 99 Oximetry [ Assessment] 12/28/17 12/28/17 12/28/17 08:57 09:25 09:27 Temperature Pulse Rate 66 Pulse Rate [ 62 Anterior Bilateral Throughout] Pulse Rate [ 60 Posterior Bilateral] Respiratory Rate Respiratory 18 Rate [Anterior Bilateral Throughout] Respiratory 18 Rate [Posterior Bilateral] Blood Pressure O2 Sat by Pulse 98 Oximetry O2 Sat by Pulse Oximetry [ Assessment] 12/28/17 11:15 Temperature 98.8 F Pulse Rate 62 Pulse Rate [ Anterior Bilateral Throughout] Pulse Rate [ Posterior Bilateral] Respiratory 20 Rate Respiratory Rate [Anterior Bilateral Throughout] Respiratory Rate [Posterior Bilateral] Blood Pressure 138/79 O2 Sat by Pulse 100 Oximetry O2 Sat by Pulse Oximetry [ Assessment] Constitutional: appears uncomfortable, other (Obese AAF normocephalic with mildly increased respiratory effort s/p tracheostomy) Eyes: non-icteric ENT: oropharynx moist, other (mallampati 3) Neck: supple, no lymphadenopathy, no JVD, other (Midline tracheostomy) Effort: mildly labored Ascultation: Bilateral: diminished breath sounds, rhonchi (bases) Percussion: Bilateral: not dull Cardiovascular: regular rate and rhythm, other (No R/M) Gastrointestinal: normoactive bowel sounds, soft, non-tender, non-distended, other (PEG tube) Integumentary: normal Extremities: no cyanosis, no edema, pulses normal, no ischemia or petechiae Neurologic: non-focal exam (grossly), pupils equal and round Psychiatric: mood appropriate, affect normal CBC and BMP: 12/29/17 04:43 12/29/17 04:43 ABG, PT/INR, D-dimer: PT/INR, D-dimer PT 14.7 Sec. (12.2-14.9) 12/25/17 01:30 INR 1.10 (0.87-1.13) 12/25/17 01:30 Abnormal lab findings: Abnormal Labs 12/25/17 12/25/17 12/25/17 01:30 01:30 01:30 WBC 25.1 H RBC Hgb Hct MCH 27 L RDW 21.6 H Seg Neuts % (Manual) 91.0 H Lymphocytes % (Manual) 6.0 L Seg Neutrophils # Man 22.8 H Lymphocytes # (Manual) VBG pH Sodium Chloride Carbon Dioxide BUN Creatinine 1.3 H Glucose 122 H POC Glucose Lactic Acid 2.40 H* Calcium Albumin 2.9 L Urine pH Vancomycin Trough 12/25/17 12/25/17 12/26/17 01:53 03:46 06:46 WBC 24.1 H RBC 3.11 L Hgb 8.7 L Hct 27.7 L MCH RDW 21.8 H Seg Neuts % (Manual) 95.0 H Lymphocytes % (Manual) 4.0 L Seg Neutrophils # Man 22.9 H Lymphocytes # (Manual) 1.0 L VBG pH 7.430 H Sodium Chloride Carbon Dioxide BUN Creatinine Glucose POC Glucose Lactic Acid Calcium Albumin Urine pH 8.0 H Vancomycin Trough 12/26/17 12/27/17 12/27/17 06:46 10:06 10:06 WBC 25.7 H RBC 2.89 L Hgb 8.2 L Hct 25.7 L MCH RDW 21.4 H Seg Neuts % (Manual) 96.0 H Lymphocytes % (Manual) 1.0 L Seg Neutrophils # Man 24.7 H Lymphocytes # (Manual) 0.3 L VBG pH Sodium 149 H 146 H Chloride 114.8 H 115.4 H Carbon Dioxide 20 L D 20 L BUN 19 H Creatinine Glucose 163 H 154 H POC Glucose Lactic Acid Calcium 7.6 L 7.3 L Albumin 2.1 L Urine pH Vancomycin Trough 12/27/17 12/27/17 12/28/17 12:31 23:14 08:47 WBC RBC Hgb Hct MCH RDW Seg Neuts % (Manual) Lymphocytes % (Manual) Seg Neutrophils # Man Lymphocytes # (Manual) VBG pH Sodium 147 H Chloride 114.9 H Carbon Dioxide BUN 22 H Creatinine Glucose 179 H POC Glucose 149 H Lactic Acid Calcium 7.8 L Albumin Urine pH Vancomycin Trough 20.7 H 12/28/17 08:51 WBC 23.1 H RBC 3.08 L Hgb 8.7 L Hct 27.8 L MCH RDW 21.2 H Seg Neuts % (Manual) Lymphocytes % (Manual) Seg Neutrophils # Man Lymphocytes # (Manual) VBG pH Sodium Chloride Carbon Dioxide BUN Creatinine Glucose POC Glucose Lactic Acid Calcium Albumin Urine pH Vancomycin Trough Allied health notes reviewed: nursing
--- NOTE | 2017-12-28 14:40 | Fluoroscopy Report ---
BARIUM SWALLOW: History: To assess for tracheoesophageal fistula. 3 fluoroscopic images were saved. There is complete occlusion of the aerodigestive tract at the level of the larynx. The esophagus could not be opacified to assess for tracheoesophageal fistula. IMPRESSION: Unsuccessful exam. There is occlusion at the level of the larynx most likely by tumor.
--- NOTE | 2017-12-28 14:52 | Gastroenterology Consultation ---
History of Present Illness - Reason for Consult Consult date: 12/28/17 tracheoesophageal fistula Requesting physician: GARY FERNÁNDEZ - History of Present Illness Patient is a 62 y/o female with PMH of esophageal cancer dx 1 year ago (s/p trach/PEG) receiving immunotherapy who presented to ED with c/o fever and SOB. She was admitted for recurrent pneumonia. Chest CT showed large left paratracheal mass encasing the left carotid artery, moderate depress atelectatic changes of the LLL, and tracheostomy in place with recommendations for an oral contrast vs endoscopy to evaluate for tracheoesophageal fistula to which GI has been consulted. This afternoon patient was resting in bed on trach w/o acute distress and family at bedside. Family states an esophagram was attempted today, however was unsucessful due to patient's inability to swallow. Currently tolerating TFs via PEG. No abd pain or N/V. Past History Past Medical History: other (esophageal cancer, pneumonia) Past Surgical History: Other (s/p trach/PEG) Social history: . denies: smoking, alcohol abuse Family history: no significant family history Medications and Allergies Allergies Allergy/AdvReac Type Severity Reaction Status Date / Time No Known Allergies Allergy Unverified 11/04/16 05:16 Home Medications Medication Instructions Recorded Confirmed Last Taken Type Acetamin/Codeine 120-12Mg/5 ml 5 ml PO TID PRN #80 ml 11/04/16 12/25/17 Unknown Rx [Tylenol/Codeine] Oxycodone HCl [oxyCODONE TAB] 10 mg PO Q6H PRN 12/25/17 12/25/17 12/24/17 History Active Meds: Active Medications Acetaminophen (Tylenol) 650 mg PO Q4H PRN PRN Reason: Pain MILD(1-3)/Fever >100.5/VAZQUEZ Albuterol/Ipratropium (Duoneb *Not For Prn Use*) 1 ampul IH QIDRT [facility] Last Admin: 12/28/17 13:22 Dose: 1 ampul Lipase/Protease/Amylase ([place] 10,500 Unit) 1 each FEEDTUBE PRN PRN PRN Reason: For Clogged Feeding Tube Enoxaparin Sodium (Lovenox) 40 mg SUB-Q QDAY [facility] Last Admin: 12/28/17 12:05 Dose: 40 mg Famotidine (Pepcid) 20 mg PO BID [facility] Last Admin: 12/28/17 12:05 Dose: 20 mg Piperacillin Sod/Tazobactam Sod (Zosyn/Ns 3.375gm/50ml) 3.375 gm in 50 mls @ 100 mls/hr IV Q6H [facility] Last Admin: 12/28/17 10:05 Dose: Not Given Sodium Chloride (Nacl 0.9% 1000 Ml) 1,000 mls @ 75 mls/hr IV DIRECT [facility] Last Admin: 12/27/17 07:39 Dose: 75 mls/hr Vancomycin HCl 1,250 mg/ (Sodium Chloride) 275 mls @ 166.667 mls/hr IV Q18H [facility] Last Admin: 12/28/17 06:00 Dose: 166.667 mls/hr Levothyroxine Sodium (Synthroid) 150 mcg PO DAILY@0600 [facility] Last Admin: 12/28/17 05:30 Dose: 150 mcg Methylprednisolone Sodium Succinate (Solu-Medrol) 40 mg IV Q8HR [facility] Last Admin: 12/28/17 05:30 Dose: 40 mg Morphine Sulfate (Morphine) 2 mg IV Q4H PRN PRN Reason: Pain, Moderate (4-6) Ondansetron HCl (Zofran) 4 mg IV Q8H PRN PRN Reason: Nausea And Vomiting Last Admin: 12/25/17 09:55 Dose: 4 mg Oxycodone/Acetaminophen (Percocet 5/325) 1 tab PO Q6H PRN PRN Reason: Pain, Moderate (4-6) Last Admin: 12/27/17 18:29 Dose: 1 tab Simple Syrup (Simple Syrup) 15 ml FEEDTUBE PRN PRN PRN Reason: Hypoglycemia Simple Syrup (Simple Syrup) 30 ml FEEDTUBE PRN PRN PRN Reason: Hypoglycemia Sodium Bicarbonate (Sodium Bicarbonate) 325 mg FEEDTUBE PRN PRN PRN Reason: For Clogged Feeding Tube Sodium Chloride (Sodium Chloride Flush Syringe 10 Ml) 10 ml IV BID [facility] Last Admin: 12/27/17 22:00 Dose: 10 ml Sodium Chloride (Sodium Chloride Flush Syringe 10 Ml) 10 ml IV PRN PRN PRN Reason: LINE FLUSH Review of Systems - Review of Systems ROS unobtainable: due to endotracheal tube Exam - Constitutional Vital Signs: Temp Pulse Resp BP Pulse Ox 98.8 F 74 18 138/79 100 12/28/17 11:15 12/28/17 13:40 12/28/17 13:40 12/28/17 11:15 12/28/17 13:41 General appearance: no acute distress - Respiratory Respiratory: bilateral: diminished - Cardiovascular Rhythm: regular Heart Sounds: Present: S1 & S2 - Gastrointestinal General gastrointestinal: Present: soft, non-tender, non-distended, normal bowel sounds, other (+PEG) - Labs CBC & Chem 7: 12/28/17 08:51 12/28/17 08:47 Lab Results: Laboratory Results - last 24 hr 12/27/17 12/27/17 12/28/17 12:31 23:14 08:47 WBC RBC Hgb Hct MCV MCH MCHC RDW Plt Count Seg Neutrophils % Sodium 147 H Potassium 4.8 Chloride 114.9 H Carbon Dioxide 25 Anion Gap 12 BUN 22 H Creatinine 1.0 Estimated GFR > 60 BUN/Creatinine Ratio 22 Glucose 179 H POC Glucose 149 H Calcium 7.8 L Vancomycin Trough 20.7 H 12/28/17 08:51 WBC 23.1 H RBC 3.08 L Hgb 8.7 L Hct 27.8 L MCV 91 MCH 28 MCHC 31 RDW 21.2 H Plt Count 299 Seg Neutrophils % Rotary Driller Sodium Potassium Chloride Carbon Dioxide Anion Gap BUN Creatinine Estimated GFR BUN/Creatinine Ratio Glucose POC Glucose Calcium Vancomycin Trough Assessment and Plan 1.tracheoesophageal fistula? -CT chest showed large left paratracheal mass encasing the left carotid artery, moderate depress atelectatic changes of the LLL, and tracheostomy in place with recommendations for an oral contrast vs endoscopy to evaluate for tracheoesophageal fistula -esophagram was attempted today but was unsuccessful due to occlusion at the larynx most likely from tumor (esophagus unable to be assessed) -will discuss option of endoscopy with Dr. Thompson, however with esophagram results and current respiratory status patient would be a high risk -continue TFs via PEG and supportive care -further recommendations to follow 2.acute hypoxic respiratory failure 3.sepsis 2/2 bilateral pneumonia 4.hx of head and neck cancer
[2017-12-28 14:56] LABS: Basophils % (Manual) 0 % (0.0-1.8); Eosinophils % (Manual) 0 % (0.0-4.3); Monocytes % (Manual) 0 % (0.0-7.3); Total Cells Counted 100
[2017-12-28 14:57] LABS: Anisocytosis 1+
[2017-12-28 14:58] LABS: Toxic Granulation 2+
[2017-12-28] MEDS: SODIUM CHLORIDE FLUSH SYRINGE 10 ML IV SCH ×2 (23:49)
[2017-12-29] MEDS: VANCOMYCIN 1,250 MG in NACL 0.9% 250ML 250 ML IV SCH (00:11)
[2017-12-29] MEDS: ZOSYN/NS 3.375GM/50ML 3.375 GM/50 ML BAG IV SCH ×3 (04:50→18:13)
[2017-12-29 05:44] LABS: Mean Corpuscular HGB Conc 32 % (30-34); Mean Corpuscular Hemoglobin 29 pg (28-32); Mean Corpuscular Volume 89 fl (79-97); Platelet Count 302 K/mm3 (140-440); Red Blood Count 3.13 M/mm3 (3.65-5.03)
[2017-12-29 05:55] LABS: Red Cell Distribution Width 21.5 % (13.2-15.2)
[2017-12-29] MEDS: SOLU-Medrol IV SCH ×2 (05:56→18:13)
[2017-12-29] MEDS: SYNTHROID PO SCH (05:57)
[2017-12-29 06:13] LABS: BUN/Creatinine Ratio 24; Blood Urea Nitrogen 22 mg/dL (7-17); Calcium 8.1 mg/dL (8.4-10.2); Hemolysis Index 3
[2017-12-29] MEDS: DUONEB *Not for PRN Use IH SCH ×3 (07:50→15:10)
[2017-12-29 07:51] LABS: Anisocytosis 1+; Basophils % (Manual) 0 % (0.0-1.8); Eosinophils % (Manual) 0 % (0.0-4.3); Ovalocytes 1+; Stomatocytes Rare; Total Cells Counted 100
[2017-12-29] MEDS ORDERED: NORVASC PO SCH (10:00)
--- NOTE | 2017-12-29 10:21 | Gastroenterology Progress Note ---
Assessment and Plan 1.tracheoesophageal fistula? -patient with hx of esophageal cancer w/o trach/PEG (G-J tube) admitted with pneumonia -CT raising possible tracheoesophageal fistula w/ paratreacheal mass -incomplete esophagram yesterday which showed complete occlusion larnyx possible malignancy related -no plans for EGD given obstruction -consider ENT or CT surgery input -continue TFs via PEG and supportive care Subjective Date of service: 12/29/17 Principal diagnosis: tracheoesophageal fistula Interval history: No acute events overnight. No abd pain or N/V. Tolerating TFs via G-J tube. Objective - Constitutional Vitals: Temp Pulse Resp BP Pulse Ox 98.5 F 64 18 173/91 98 12/29/17 07:30 12/29/17 08:05 12/29/17 08:05 12/29/17 07:30 12/29/17 08:44 General appearance: no acute distress, other (on trach) - Respiratory Respiratory: bilateral: diminished - Cardiovascular Rhythm: regular Heart Sounds: Present: S1 & S2 - Gastrointestinal General gastrointestinal: Present: soft, non-tender, non-distended, normal bowel sounds, other (+G-J tube) - Neurologic Neurological: other (alert) - Labs CBC & Chem 7: 12/29/17 04:43 12/29/17 04:43 Labs: Laboratory Results - last 24 hr 12/28/17 12/29/17 12/29/17 08:51 04:43 04:43 WBC 27.2 H RBC 3.13 L Hgb 9.0 L Hct 28.0 L MCV 89 MCH 29 MCHC 32 RDW 21.5 H Plt Count 302 Add Manual Diff Complete Complete Total Counted 100 100 Seg Neutrophils % Manager Seg Neuts % (Manual) 99.0 H 97.0 H Band Neutrophils % 0 0 Lymphocytes % (Manual) 1.0 L 2.0 L Reactive Lymphs % (Man) 0 0 Monocytes % (Manual) 0 1.0 Eosinophils % (Manual) 0 0 Basophils % (Manual) 0 0 Metamyelocytes % 0 0 Myelocytes % 0 0 Promyelocytes % 0 0 Blast Cells % 0 0 Nucleated RBC % Not Reportable Not Reportable Seg Neutrophils # Man 22.9 H 26.4 H Band Neutrophils # 0.0 0.0 Lymphocytes # (Manual) 0.2 L 0.5 L Abs React Lymphs (Man) 0.0 0.0 Monocytes # (Manual) 0.0 0.3 Eosinophils # (Manual) 0.0 0.0 Basophils # (Manual) 0.0 0.0 Metamyelocytes # 0.0 0.0 Myelocytes # 0.0 0.0 Promyelocytes # 0.0 0.0 Blast Cells # 0.0 0.0 WBC Morphology Not Reportable Not Reportable Hypersegmented Neuts Not Reportable Not Reportable Hyposegmented Neuts Not Reportable Not Reportable Hypogranular Neuts Not Reportable Not Reportable Smudge Cells Not Reportable Not Reportable Toxic Granulation 2+ Not Reportable Toxic Vacuolation Not Reportable Not Reportable Dohle Bodies Not Reportable Not Reportable Pelger-Huet Anomaly Not Reportable Not Reportable Lianna Rods Not Reportable Not Reportable Platelet Estimate Appears normal Appears normal Clumped Platelets Not Reportable Not Reportable Plt Clumps, EDTA Not Reportable Not Reportable Large Platelets Not Reportable Not Reportable Giant Platelets Not Reportable Not Reportable Platelet Satelliting Not Reportable Not Reportable Plt Morphology Comment Not Reportable Not Reportable RBC Morphology Not Reportable Not Reportable Dimorphic RBCs Not Reportable Not Reportable Polychromasia Not Reportable Not Reportable Hypochromasia Not Reportable Not Reportable Poikilocytosis Not Reportable Not Reportable Anisocytosis 1+ 1+ Microcytosis Not Reportable Few Macrocytosis Not Reportable Not Reportable Spherocytes Not Reportable Not Reportable Pappenheimer Bodies Not Reportable Not Reportable Sickle Cells Not Reportable Not Reportable Target Cells Not Reportable Not Reportable Tear Drop Cells Not Reportable Not Reportable Ovalocytes Not Reportable 1+ Stomatocytes Rare Helmet Cells Not Reportable Not Reportable [place] Bodies Not Reportable Not Reportable [place] Rings Not Reportable Not Reportable Yeni Cells Not Reportable Not Reportable Bite Cells Not Reportable Not Reportable Crenated Cell Not Reportable Not Reportable Elliptocytes Not Reportable Not Reportable Acanthocytes (Spur) Not Reportable Not Reportable Rouleaux Not Reportable Not Reportable Hemoglobin C Crystals Not Reportable Not Reportable Schistocytes Not Reportable Not Reportable Malaria parasites Not Reportable Not Reportable Edward Bodies Not Reportable Not Reportable Hem Pathologist Commnt No No Sodium 146 H Potassium 4.5 Chloride 112.8 H Carbon Dioxide 24 Anion Gap 14 BUN 22 H Creatinine 0.9 Estimated GFR > 60 BUN/Creatinine Ratio 24 Glucose 155 H Calcium 8.1 L
[2017-12-29] MEDS: LOVENOX SUB-Q SCH (11:21)
[2017-12-29] MEDS: PEPCID PO SCH (11:22)
--- NOTE | 2017-12-29 13:11 | Progress Note ---
Assessment and Plan [id number] hypoxemic respiratory failure requiring about 40% FiO2 at initial presentation. Abnormal chest x-ray, possible bilateral pneumonia. Sepsis syndrome. Small volume atelectasis bilaterally. History of head and neck cancer, status post chemoradiotherapy. Oropharyngeal dysphagia. Obesity. Leukocytosis. Mild acute kidney injury. Hypoalbuminemia. - continue empiric anti-pseudomonal AB's coverage - ID consult placed - continue routine trach care, bronchodilators and pulmonary hygiene per RT - enteral nutrition as tolerated - continue aspiration precautions - continue supplemental oxygen to keep sats > 90% - PT/OT/ROM exercises as tolerated - continue mobility protocol for pressure ulcer prophylaxis - continue GI & VTE prophylaxis - continue other care per attending / other consultants .... re-evaluate in am & prn .... 35' Subjective Date of service: 12/29/17 Principal diagnosis: tracheoesophageal fistula Interval history: Patient is seen today for: Acute on Chronic Hypoxemic Resp Failure; Sepsis [place]dro[place]; Pneumonia; H&N Cancer Seen and examined at bedside; 24hour events reviewed; nursing and respiratory care staff consulted; no adverse overnight events reported to me; resting peacefully in bed; Objective Vital Signs - 12hr 12/29/17 12/29/17 12/29/17 06:50 07:30 07:51 Temperature 97.5 F L 98.5 F Pulse Rate 59 L 59 L Pulse Rate [ 67 Anterior Bilateral Throughout] Respiratory 20 20 Rate Respiratory 18 Rate [Anterior Bilateral Throughout] Blood Pressure 144/82 173/91 O2 Sat by Pulse 94 97 Oximetry O2 Sat by Pulse Oximetry [ Assessment] 12/29/17 12/29/17 12/29/17 08:05 08:38 08:44 Temperature Pulse Rate Pulse Rate [ 64 Anterior Bilateral Throughout] Respiratory Rate Respiratory 18 Rate [Anterior Bilateral Throughout] Blood Pressure O2 Sat by Pulse 100 Oximetry O2 Sat by Pulse 98 Oximetry [ Assessment] 12/29/17 11:43 Temperature 98.1 F Pulse Rate 61 Pulse Rate [ Anterior Bilateral Throughout] Respiratory 20 Rate Respiratory Rate [Anterior Bilateral Throughout] Blood Pressure 146/80 O2 Sat by Pulse 96 Oximetry O2 Sat by Pulse Oximetry [ Assessment] Constitutional: appears uncomfortable, other (Obese AAF normocephalic with increased respiratory effort without extrimis) Eyes: non-icteric ENT: oropharynx moist, other (mallampati 3) Neck: supple, no lymphadenopathy, no JVD, other (Midline tracheostomy) Effort: mildly labored Ascultation: Bilateral: diminished breath sounds, rhonchi (bases) Percussion: Bilateral: not dull Cardiovascular: regular rate and rhythm, other (No R/M) Gastrointestinal: normoactive bowel sounds, soft, non-tender, non-distended, other (PEG tube) Integumentary: normal Extremities: no cyanosis, no edema, pulses normal, no ischemia or petechiae Neurologic: non-focal exam (grossly), pupils equal and round, CN II-XII normal Psychiatric: other (unable to assess) CBC and BMP: 12/29/17 04:43 12/29/17 04:43 ABG, PT/INR, D-dimer: PT/INR, D-dimer PT 14.7 Sec. (12.2-14.9) 12/25/17 01:30 INR 1.10 (0.87-1.13) 12/25/17 01:30 Abnormal lab findings: Abnormal Labs 12/25/17 12/25/17 12/25/17 01:30 01:30 01:30 WBC 25.1 H RBC Hgb Hct MCH 27 L RDW 21.6 H Seg Neuts % (Manual) 91.0 H Lymphocytes % (Manual) 6.0 L Seg Neutrophils # Man 22.8 H Lymphocytes # (Manual) VBG pH Sodium Chloride Carbon Dioxide BUN Creatinine 1.3 H Glucose 122 H POC Glucose Lactic Acid 2.40 H* Calcium Albumin 2.9 L Urine pH Vancomycin Trough 12/25/17 12/25/17 12/26/17 01:53 03:46 06:46 WBC 24.1 H RBC 3.11 L Hgb 8.7 L Hct 27.7 L MCH RDW 21.8 H Seg Neuts % (Manual) 95.0 H Lymphocytes % (Manual) 4.0 L Seg Neutrophils # Man 22.9 H Lymphocytes # (Manual) 1.0 L VBG pH 7.430 H Sodium Chloride Carbon Dioxide BUN Creatinine Glucose POC Glucose Lactic Acid Calcium Albumin Urine pH 8.0 H Vancomycin Trough 12/26/17 12/27/17 12/27/17 06:46 10:06 10:06 WBC 25.7 H RBC 2.89 L Hgb 8.2 L Hct 25.7 L MCH RDW 21.4 H Seg Neuts % (Manual) 96.0 H Lymphocytes % (Manual) 1.0 L Seg Neutrophils # Man 24.7 H Lymphocytes # (Manual) 0.3 L VBG pH Sodium 149 H 146 H Chloride 114.8 H 115.4 H Carbon Dioxide 20 L D 20 L BUN 19 H Creatinine Glucose 163 H 154 H POC Glucose Lactic Acid Calcium 7.6 L 7.3 L Albumin 2.1 L Urine pH Vancomycin Trough 12/27/17 12/27/17 12/28/17 12:31 23:14 08:47 WBC RBC Hgb Hct MCH RDW Seg Neuts % (Manual) Lymphocytes % (Manual) Seg Neutrophils # Man Lymphocytes # (Manual) VBG pH Sodium 147 H Chloride 114.9 H Carbon Dioxide BUN 22 H Creatinine Glucose 179 H POC Glucose 149 H Lactic Acid Calcium 7.8 L Albumin Urine pH Vancomycin Trough 20.7 H 12/28/17 12/29/17 12/29/17 08:51 04:43 04:43 WBC 23.1 H 27.2 H RBC 3.08 L 3.13 L Hgb 8.7 L 9.0 L Hct 27.8 L 28.0 L MCH RDW 21.2 H 21.5 H Seg Neuts % (Manual) 99.0 H 97.0 H Lymphocytes % (Manual) 1.0 L 2.0 L Seg Neutrophils # Man 22.9 H 26.4 H Lymphocytes # (Manual) 0.2 L 0.5 L VBG pH Sodium 146 H Chloride 112.8 H Carbon Dioxide BUN 22 H Creatinine Glucose 155 H POC Glucose Lactic Acid Calcium 8.1 L Albumin Urine pH Vancomycin Trough Allied health notes reviewed: nursing
--- NOTE | 2017-12-29 14:46 | Progress Note ---
Assessment and Plan Assessment: 1) Sepsis: better with leukocytosis worsening (on IV solumedrol). Etiology most likely recurrent vs persistent pneumonia. 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 per patient fistula was fixed at [facility] -CXR bibasilar atelectasis vs infltrates -Sputum on 12/05/17 at [facility] Pseudomona aeruginosa, klebsiella and Strep group F -CT chest large 4.9 cm left paratracheal mass, left atelectasis. 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 CXR with bilateral infiltrate, treated initially with was on zosyn, switched to cefepime due to elevated sodium level, sputum cx grew Pseudomona aerugnosa, klebsiella and Strep group F . At discharge she was prescribed cipro and flagyl per GJ tube to end on 12/25. 5) MARCIAL - better Plan: -stop -CRP -continue zosyn -vanco for now -agree with transfer to tertiary facility needs CT surg eval Discussed Dr Gonzalez Thank you for your consultation, will follow up with you. Joy Quinones MD Infectious Diseases Specialist [facility] ([facility]) M [phone] O [phone] Subjective Date of service: 12/29/17 Principal diagnosis: tracheoesophageal fistula Interval history: feels better. no fever Microbiology: Blood cultures: 12/25 ngtd Urine cultures: 12/25 ngtd Respiratory cultures: 12/26 pend Current Antimicrobials: Zosyn vanco Objective - Exam Narrative Exam: General appearance: Alert in NAD, following cmmands Eyes: anicteric sclerae, moist conjunctivae; no lid-lag; PERRLA HENT: Atraumatic; oropharynx clear Neck: Trach in place Lungs: dylon rhonchi CV: tachy Abdomen: Soft, non-tender;PEG Extremities: No peripheral edema or extremity lymphadenopathy Skin: Normal temperature, turgor and texture; no rash, ulcers or subcutaneous nodules Psych: Appropriate affect, alert and oriented to person, place and time. Neuro: alert and oriented x 3. Moving all extermities Lines: No CVL / PICC - Constitutional Vitals: Vital Signs Temp Pulse Resp BP Pulse Ox 98.1 F 63 18 146/80 96 12/29/17 11:43 12/29/17 13:52 12/29/17 13:52 12/29/17 11:43 12/29/17 11:43 Temperature -Last 24 Hours Temperature 98.1 F Temperature 98.5 F Temperature 97.5 F Temperature 98.0 F Temperature 97.3 F Temperature 98.0 F - Labs CBC & Chem 7: 12/29/17 04:43 12/29/17 04:43 Labs: Abnormal lab results 12/28/17 12/29/17 12/29/17 Range/Units 08:51 04:43 04:43 WBC 27.2 H (4.5-11.0) K/mm3 RBC 3.13 L (3.65-5.03) M/mm3 Hgb 9.0 L (10.1-14.3) gm/dl Hct 28.0 L (30.3-42.9) % RDW 21.5 H (13.2-15.2) % Seg Neuts % (Manual) 99.0 H 97.0 H (40.0-70.0) % Lymphocytes % (Manual) 1.0 L 2.0 L (13.4-35.0) % Seg Neutrophils # Man 22.9 H 26.4 H (1.8-7.7) K/mm3 Lymphocytes # (Manual) 0.2 L 0.5 L (1.2-5.4) K/mm3 Sodium 146 H (137-145) mmol/L Chloride 112.8 H (98-107) mmol/L BUN 22 H (7-17) mg/dL Glucose 155 H (65-100) mg/dL Calcium 8.1 L (8.4-10.2) mg/dL
--- NOTE | 2017-12-29 15:21 | Progress Note ---
Assessment and Plan Assessment and plan: 62-year-old -Spanish female with past medical history significant for head and neck cancer, status post trach presented to the emergency department for the complaints of fever, increased secretion and difficulty of breathing. Patient was recently admitted to another hospital for pneumonia Acute hypoxic respiratory failure - Patient is on trach - Oxygen support - Trach care - Pulmonary critical care consult appreciated Esophagogram was unsuccessful and endoscopy couldn't be done because of laryngeal obstruction due to cancer mass Sepsis secondary to Bilateral pneumonia, history of Pseudomonas infection - Patient is on IV Zosyn and vancomycin - Leukocytosis trending up 27K this morning - ID consult appreciated - patient may have TE fistula and recommend to be evaluated by ENT, I have called cancer to transfer and pending bed MARCIAL - Resolved History of head and neck cancer Obesity Dysphagia DVT prophylaxis - On Lovenox Disposition - Patient need to be transferred to [facility] facility either [place] or [facility], I have discussed with Luis Healy and will take her once bed is available. History Interval history: Patient was seen and evaluated at the bedside, patient is on trachn 4 litres of O2, lying comfortably on the bed. Hospitalist Physical - Physical exam Narrative exam: Patient is on trach, 4l of o2 The patient appeared well nourished and normally developed. Vital signs as documented. Head exam is unremarkable. No scleral icterus . Neck is without jugular venous distension, thyromegaly, or carotid bruits. Lungs are clear to auscultation. Cardiac exam reveals regular rate and Rhythm. First and second heart sounds normal. No murmurs, rubs or gallops. Abdominal exam reveals normal bowel soundsG tube in place. Extremities are nonedematous and both femoral and pedal pulses are normal. COMMUNITY RELATIONS ADVISOR: Alert and oriented 3. No focal weakness. - Constitutional Vitals: Temp Pulse Resp BP Pulse Ox 98.1 F 71 18 146/80 96 12/29/17 11:43 12/29/17 15:11 12/29/17 15:11 12/29/17 11:43 12/29/17 11:43 General appearance: Present: no acute distress, well-nourished Results - Labs CBC & Chem 7: 12/29/17 04:43 12/29/17 04:43 Labs: Laboratory Last Values WBC 27.2 K/mm3 (4.5-11.0) H 12/29/17 04:43 RBC 3.13 M/mm3 (3.65-5.03) L 12/29/17 04:43 Hgb 9.0 gm/dl (10.1-14.3) L 12/29/17 04:43 Hct 28.0 % (30.3-42.9) L 12/29/17 04:43 MCV 89 fl (79-97) 12/29/17 04:43 MCH 29 pg (28-32) 12/29/17 04:43 MCHC 32 % (30-34) 12/29/17 04:43 RDW 21.5 % (13.2-15.2) H 12/29/17 04:43 Plt Count 302 K/mm3 (140-440) 12/29/17 04:43 Add Manual Diff Complete 12/29/17 04:43 Total Counted 100 12/29/17 04:43 Seg Neutrophils % Box Press Operator 12/29/17 04:43 Seg Neuts % (Manual) 97.0 % (40.0-70.0) H 12/29/17 04:43 Band Neutrophils % 0 % 12/29/17 04:43 Lymphocytes % (Manual) 2.0 % (13.4-35.0) L 12/29/17 04:43 Reactive Lymphs % (Man) 0 % 12/29/17 04:43 Monocytes % (Manual) 1.0 % (0.0-7.3) 12/29/17 04:43 Eosinophils % (Manual) 0 % (0.0-4.3) 12/29/17 04:43 Basophils % (Manual) 0 % (0.0-1.8) 12/29/17 04:43 Metamyelocytes % 0 % 12/29/17 04:43 Myelocytes % 0 % 12/29/17 04:43 Promyelocytes % 0 % 12/29/17 04:43 Blast Cells % 0 % 12/29/17 04:43 Nucleated RBC % Not Reportable 12/29/17 04:43 Seg Neutrophils # Man 26.4 K/mm3 (1.8-7.7) H 12/29/17 04:43 Band Neutrophils # 0.0 K/mm3 12/29/17 04:43 Lymphocytes # (Manual) 0.5 K/mm3 (1.2-5.4) L 12/29/17 04:43 Abs React Lymphs (Man) 0.0 K/mm3 12/29/17 04:43 Monocytes # (Manual) 0.3 K/mm3 (0.0-0.8) 12/29/17 04:43 Eosinophils # (Manual) 0.0 K/mm3 (0.0-0.4) 12/29/17 04:43 Basophils # (Manual) 0.0 K/mm3 (0.0-0.1) 12/29/17 04:43 Metamyelocytes # 0.0 K/mm3 12/29/17 04:43 Myelocytes # 0.0 K/mm3 12/29/17 04:43 Promyelocytes # 0.0 K/mm3 12/29/17 04:43 Blast Cells # 0.0 K/mm3 12/29/17 04:43 WBC Morphology Not Reportable 12/29/17 04:43 Hypersegmented Neuts Not Reportable 12/29/17 04:43 Hyposegmented Neuts Not Reportable 12/29/17 04:43 Hypogranular Neuts Not Reportable 12/29/17 04:43 Smudge Cells Not Reportable 12/29/17 04:43 Toxic Granulation Not Reportable 12/29/17 04:43 Toxic Vacuolation Not Reportable 12/29/17 04:43 Dohle Bodies Not Reportable 12/29/17 04:43 Pelger-Huet Anomaly Not Reportable 12/29/17 04:43 Lianna Rods Not Reportable 12/29/17 04:43 Platelet Estimate Appears normal 12/29/17 04:43 Clumped Platelets Not Reportable 12/29/17 04:43 Plt Clumps, EDTA Not Reportable 12/29/17 04:43 Large Platelets Not Reportable 12/29/17 04:43 Giant Platelets Not Reportable 12/29/17 04:43 Platelet Satelliting Not Reportable 12/29/17 04:43 Plt Morphology Comment Not Reportable 12/29/17 04:43 RBC Morphology Not Reportable 12/29/17 04:43 Dimorphic RBCs Not Reportable 12/29/17 04:43 Polychromasia Not Reportable 12/29/17 04:43 Hypochromasia Not Reportable 12/29/17 04:43 Poikilocytosis Not Reportable 12/29/17 04:43 Anisocytosis 1+ 12/29/17 04:43 Microcytosis Few 12/29/17 04:43 Macrocytosis Not Reportable 12/29/17 04:43 Spherocytes Not Reportable 12/29/17 04:43 Pappenheimer Bodies Not Reportable 12/29/17 04:43 Sickle Cells Not Reportable 12/29/17 04:43 Target Cells Not Reportable 12/29/17 04:43 Tear Drop Cells Not Reportable 12/29/17 04:43 Ovalocytes 1+ 12/29/17 04:43 Stomatocytes Rare 12/29/17 04:43 Helmet Cells Not Reportable 12/29/17 04:43 [place] Bodies Not Reportable 12/29/17 04:43 [place] Rings Not Reportable 12/29/17 04:43 [place] Cells Not Reportable 12/29/17 04:43 Bite Cells Not Reportable 12/29/17 04:43 Crenated Cell Not Reportable 12/29/17 04:43 Elliptocytes Not Reportable 12/29/17 04:43 Acanthocytes (Spur) Not Reportable 12/29/17 04:43 Rouleaux Not Reportable 12/29/17 04:43 Hemoglobin C Crystals Not Reportable 12/29/17 04:43 Schistocytes Not Reportable 12/29/17 04:43 Malaria parasites Not Reportable 12/29/17 04:43 Edward Bodies Not Reportable 12/29/17 04:43 Hem Pathologist Commnt No 12/29/17 04:43 PT 14.7 Sec. (12.2-14.9) 12/25/17 01:30 INR 1.10 (0.87-1.13) 12/25/17 01:30 VBG pH 7.430 (7.320-7.420) H 12/25/17 01:53 Sodium 146 mmol/L (137-145) H 12/29/17 04:43 Potassium 4.5 mmol/L (3.6-5.0) 12/29/17 04:43 Chloride 112.8 mmol/L (98-107) H 12/29/17 04:43 Carbon Dioxide 24 mmol/L (22-30) 12/29/17 04:43 Anion Gap 14 mmol/L 12/29/17 04:43 BUN 22 mg/dL (7-17) H 12/29/17 04:43 Creatinine 0.9 mg/dL (0.7-1.2) 12/29/17 04:43 Estimated GFR > 60 ml/min 12/29/17 04:43 BUN/Creatinine Ratio 24 % 12/29/17 04:43 Glucose 155 mg/dL (65-100) H 12/29/17 04:43 POC Glucose 149 (70-105) H 12/27/17 12:31 Hemoglobin A1c 5.8 % (4-6) 12/25/17 01:23 Lactic Acid 1.90 mmol/L (0.7-2.0) 12/25/17 03:44 Calcium 8.1 mg/dL (8.4-10.2) L 12/29/17 04:43 Total Bilirubin 0.20 mg/dL (0.1-1.2) 12/26/17 06:46 AST 14 units/L (5-40) 12/26/17 06:46 ALT 8 units/L (7-56) 12/26/17 06:46 Alkaline Phosphatase 73 units/L (35-129) 12/26/17 06:46 Total Protein 6.7 g/dL (6.3-8.2) 12/26/17 06:46 Albumin 2.1 g/dL (3.9-5) L 12/26/17 06:46 Albumin/Globulin Ratio 0.5 % 12/26/17 06:46 Urine Color Yellow (Yellow) 12/25/17 03:46 Urine Turbidity Clear (Clear) 12/25/17 03:46 Urine pH 8.0 (5.0-7.0) H 12/25/17 03:46 Ur Specific [place] 1.006 (1.003-1.030) 12/25/17 03:46 Urine Protein 30 mg/dl mg/dL (Negative) 12/25/17 03:46 Urine Glucose (UA) Neg mg/dL (Negative) 12/25/17 03:46 Urine Ketones Neg mg/dL (Negative) 12/25/17 03:46 Urine Blood Neg (Negative) 12/25/17 03:46 Urine Nitrite Neg (Negative) 12/25/17 03:46 Urine Bilirubin Neg (Negative) 12/25/17 03:46 Urine Urobilinogen < 2.0 mg/dL (<2.0) 12/25/17 03:46 Ur Leukocyte Esterase Tr (Negative) 12/25/17 03:46 Urine WBC (Auto) 4.0 /HPF (0.0-6.0) 12/25/17 03:46 Urine RBC (Auto) 2.0 /HPF (0.0-6.0) 12/25/17 03:46 U Epithel Cells (Auto) 1.0 /HPF (0-13.0) 12/25/17 03:46 Urine Bacteria (Auto) 1+ /HPF (Negative) 12/25/17 03:46 Vancomycin Trough 20.7 ug/mL (5.0-20.0) H 12/27/17 23:14
--- NOTE | 2017-12-29 16:27 | Discharge Summary ---
Providers - Providers Date of Admission: 12/25/17 05:56 Attending physician: GARY FERNÁNDEZ MD 12/25/17 05:56 Consult to Physician [CONS] Routine Comment: Answering Service notified @ 0603 Consulting Provider: VLADIMIR WOOD Physician Instructions: Reason For Exam: resp failure 12/25/17 07:27 Consult to Physician [CONS] Routine Comment: DR DOLL NOTIFIED 1035 Consulting Provider: MALIK DORADO Physician Instructions: Reason For Exam: Sepsis 12/25/17 12:21 Consult to Dietitian/Nutrition [CONS] Routine Physician Instructions: Assess nutrtn needs, initiate, modify, manage TF Reason For Exam: Reason for Consult: Write/Manage Tube Feeding Reason for Consult: Write/Manage Tube Feeding 12/28/17 11:49 Consult to Physician [CONS] Routine Comment: swallow the oral contrast Consulting Provider: IVETH WALSH Physician Instructions: May need endoscopy id the patient is not able to Reason For Exam: ? 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 (2) MARCIAL (acute kidney injury) Status: Acute (3) Acute respiratory failure Status: Acute Qualifiers: Respiratory failure complication: hypoxia Qualified Code(s): J96.01 - Acute respiratory failure with hypoxia (4) Fever Status: Acute (5) Pneumonia Status: Acute Qualifiers: Laterality: bilateral (6) Sepsis Status: Acute Qualifiers: Sepsis type: sepsis due to unspecified organism Qualified Code(s): A41.9 - Sepsis, unspecified organism (7) Throat cancer Status: Chronic Core Measure Documentation - Palliative Care Palliative Care/ Comfort Measures: Not Applicable - Core Measures Any of the following diagnoses?: none Exam - Physical Exam Narrative exam: Patient is on trach, 4l of o2 The patient appeared well nourished and normally developed. Vital signs as documented. Head exam is unremarkable. No scleral icterus . Neck is without jugular venous distension, thyromegaly, or carotid bruits. Lungs are clear to auscultation. Cardiac exam reveals regular rate and Rhythm. First and second heart sounds normal. No murmurs, rubs or gallops. Abdominal exam reveals normal bowel soundsG tube in place. Extremities are nonedematous and both femoral and pedal pulses are normal. SITE LEADER: Alert and oriented 3. No focal weakness. - Constitutional Vitals: Temp Pulse Resp BP Pulse Ox 98.1 F 72 18 146/80 97 12/29/17 11:43 12/29/17 15:28 12/29/17 15:28 12/29/17 11:43 12/29/17 15:41 Plan Activity: no restrictions Weight Bearing Status: Full Weight Bearing Diet: per dietitian instruction Follow up with: PRIMARY CAREMD [Primary Care Provider] - 3-5 Days
[2017-12-29 16:43] VITALS: BP 135/81
== END 2017-12-29 18:45 | disposition short-term general hospital (02) | DRG 871 ==
LOC: ED 00:58 → CC1 05:56 → 4A 15:23
PROVIDERS: ADMIT Internal Medicine; ATTEND Internal Medicine
DX: A41.9 Sepsis, unspecified organism (principal); J18.9 Pneumonia, unspecified organism; J96.21 Acute and chronic respiratory failure with hypoxia; J95.04 Tracheo-esophageal fistula following tracheostomy; N17.9 Acute kidney failure, unspecified; C15.9 Malignant neoplasm of esophagus, unspecified; C78.00 Secondary malignant neoplasm of unspecified lung; C77.9 Secondary and unspecified malignant neoplasm of lymph node, unspecified; Y83.8 Other surgical procedures as the cause of abnormal reaction of the patient, or of later complication, without mention of misadventure at the time of the procedure; C14.0 Malignant neoplasm of pharynx, unspecified; J38.6 Stenosis of larynx; E66.9 Obesity, unspecified; R13.12 Dysphagia, oropharyngeal phase; E88.09 Other disorders of plasma-protein metabolism, not elsewhere classified; Z85.89 Personal history of malignant neoplasm of other organs and systems; Z68.38 Body mass index [BMI] 38.0-38.9, adult; Z79.899 Other long term (current) drug therapy; Z93.1 Gastrostomy status
CPT/HCPCS: 36415; 71045; 71260; 74220; 80048; 80053; 80202; 81001; 82140; 82805; 82962; 83036; 85007; 85025; 85610; 87040; 87070; 87086; 87205; 93005; 93010; 94640; 94760; J1650; J2405; J2543; J2920; J3370; J7030; J7040; J7050; Q9967

== ENCOUNTER 2018-05-30 20:54 | Emergency (ER) | payer OTHER ==
--- NOTE | 2018-05-30 22:43 | XRay Report ---
FINAL REPORT PROCEDURE: XR CHEST 1V AP TECHNIQUE: Chest radiograph anteroposterior view. CPT 84945 HISTORY: Syncope COMPARISON: 12/25/2017. FINDINGS: Heart: Normal. Mediastinum/Vessels: Normal. Lungs/Pleural space: An inhomogeneous density is noted left lung base. Right lung pleural spaces are clear.. Bony thorax: No acute osseous abnormality. Life support devices: A tracheostomy tube is in place.. IMPRESSION: An inhomogeneous density in the left lung base may represent atelectatic versus infiltrative changes. .
--- NOTE | 2018-05-30 22:51 | Emergency Department Report ---
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 Patient's is at the bedside. He states he left her very briefly. He will return to the room patient was still in the bed but she was not responsive. He states her eyes dilated and she was having trouble breathing. The removed her in a cannula which was dirty and placed a new one. Shortly afterwards patient's mental status and respiratory status improves and she was able to walk out of the bed upon EMS arrival. Contrary to triage note patient was not found down on the floor. Patient complains of a headache currently. Her initial room air saturation was 100% upon arrival. Patient last received chemotherapy 4 weeks ago. Her doctors are [facility]. - Related Data Home Medications Medication Instructions Recorded Confirmed Last Taken Oxycodone HCl [oxyCODONE TAB] 10 mg PO Q6H PRN 12/25/17 12/25/17 12/24/17 Previous Rx's Medication Instructions Recorded Last Taken Type Acetamin/Codeine 120-12Mg/5 ml 5 ml PO TID PRN #80 ml 11/04/16 Unknown Rx [Tylenol/Codeine 120-12 mg/5 ml] Allergies Allergy/AdvReac Type Severity Reaction Status Date / Time No Known Allergies Allergy Unverified 11/04/16 05:16 ED Review of Systems ROS: Stated complaint: SYNCOPE Other details as noted in HPI Comment: All other systems reviewed and negative ED Past Medical Hx - Past Medical History Hx CVA: Yes Hx of Cancer: Yes (Throat) Additional medical history: Pneumonia - Surgical History Additional Surgical History: Tracheostomy, Peg-Tube - Social History Smoking Status: Never Smoker Substance Use Type: None - Medications Home Medications: Home Medications Medication Instructions Recorded Confirmed Last Taken Type Acetamin/Codeine 120-12Mg/5 ml 5 ml PO TID PRN #80 ml 11/04/16 12/25/17 Unknown Rx [Tylenol/Codeine 120-12 mg/5 ml] Oxycodone HCl [oxyCODONE TAB] 10 mg PO Q6H PRN 12/25/17 12/25/17 12/24/17 History ED Physical Exam - General Limitations: Other - Other Other exam information: General: No limitations, patient is alert in no acute distress Head exam: Atraumatic, normocephalic Eyes exam: Normal appearance, pupils equal reactive to light, extraocular movements intact ENT: Moist mucous membrane, normal oropharynx, tracheostomy, no stridor Neck exam: Normal inspection, full range of motion, no meningismus nontender Respiratory exam: no tachypnea or accessory muscle use, no crackles or wheezes Cardiovascular: Normal rate and rhythm Abdomen: Soft, nondistended, and nontender, with normal bowel sounds, no rebound, or guarding, PEG tube Extremity: Full range of motion normal inspection no deformity Back: Normal Inspection, full range of motion, no tenderness Neurologic: Alert, equal hand bag liner and foot dorsiflexion, patient unable to speak due to tracheostomy Psychiatric: normal affect, normal mood Skin: Warm, dry, intact ED Course Vital Signs 05/30/18 05/30/18 05/31/18 21:54 22:09 00:15 Temperature 98.3 F Pulse Rate 82 Respiratory 14 Rate Blood Pressure 131/71 [Left] O2 Sat by Pulse 100 Oximetry O2 Sat by Pulse 100 Oximetry [ Assessment] 05/31/18 01:05 Temperature Pulse Rate 94 H Respiratory 18 Rate Blood Pressure 142/85 [Left] O2 Sat by Pulse 94 Oximetry O2 Sat by Pulse Oximetry [ Assessment] - Consultations Consultation #1: 05/31/18 01:[address] Gibbons consultative sales associate physician for [facility]. I concerns for leukocytosis. As per her medical record last ABC count was 16. It appears that patient's left lung atelectasis as his infiltrate findings on chest x-ray or chronic. Suggest that likely secondary that chronic leukocytosis likely secon fior to cancer - Lab Data Result diagrams: 05/30/18 22:36 05/30/18 22:36 Lab Results 05/30/18 05/30/18 05/30/18 Range/Units 22:36 22:36 22:36 WBC 21.4 H (4.5-11.0) K/mm3 RBC 3.90 (3.65-5.03) M/mm3 Hgb 10.2 (10.1-14.3) gm/dl Hct 32.1 (30.3-42.9) % MCV 82 (79-97) fl MCH 26 L (28-32) pg MCHC 32 (30-34) % RDW 17.4 H (13.2-15.2) % Plt Count 380 (140-440) K/mm3 PT 13.8 (12.2-14.9) Sec. INR 1.02 (0.87-1.13) APTT 20.0 L (24.2-36.6) Sec. Sodium 134 L (137-145) mmol/L Potassium 4.2 (3.6-5.0) mmol/L Chloride 92.8 L (98-107) mmol/L Carbon Dioxide 28 (22-30) mmol/L Anion Gap 17 mmol/L BUN 10 (7-17) mg/dL Creatinine 0.7 (0.7-1.2) mg/dL Estimated GFR > 60 ml/min BUN/Creatinine Ratio 14 % Glucose 121 H (65-100) mg/dL Calcium 11.3 H (8.4-10.2) mg/dL Magnesium 2.00 (1.7-2.3) mg/dL Total Bilirubin 0.40 (0.1-1.2) mg/dL AST 21 (5-40) units/L ALT 20 (7-56) units/L Alkaline Phosphatase 137 H (35-129) units/L Troponin T < 0.010 (0.00-0.029) ng/mL Total Protein 7.6 (6.3-8.2) g/dL Albumin 3.0 L (3.9-5) g/dL Albumin/Globulin Ratio 0.7 % - EKG Data -: EKG Interpreted by Ks EKG shows normal: sinus rhythm, axis (qrs 13), QRS complexes (qrsd 70), ST-T waves (no STEMI or T-wave inversion) Rate: normal (99) When compared to previous EKG there are: no significant change - Radiology Data Radiology results: report reviewed cxr: An homogenous density in the left lung base may represent atelectasis versus infiltrate CT head: No acute abnormality. A small irregular hyperdense lesion of the left centrum semiovale most likely represents an old infarct - Medical Decision Making It appears the patient might have had interventricular obstruction due to a tracheostomy tube which was placed prior to patient arrival. Patient's room air saturation 100% when patient is awake. Patient has significant leukocytosis which was discussed with the [facility] doctor. denies the patient has had any infectious symptoms or fever. They should be encouraged to follow-up with [facility] doctors and discharged home since she is currently at her baseline. - Differential Diagnosis tracheostomy obstruction, pneumonia, PE, ICH, syncope, arrhythmia Critical Care Time: No Critical care attestation.: If time is entered above; I have spent that time in minutes in the direct care of this critically ill patient, excluding procedure time. ED Disposition Clinical Impression: Unresponsive episode, Pneumonia, Throat cancer, Tracheostomy dependence, Tracheostomy obstruction, Leukocytosis Disposition: DC-01 TO HOME OR SELFCARE Is pt being admited?: No Does the pt Need Aspirin: No Condition: Stable Instructions: Tracheostomy Care (ED) Additional Instructions: Call the [facility] doctors tomorrow for follow-up. Return if symptoms worsen as indicated by your discharge instructions Time of Disposition: 02:13
--- NOTE | 2018-05-30 23:12 | Cat Scan Report ---
FINAL REPORT PROCEDURE: CT HEAD/BRAIN WO CON TECHNIQUE: Computerized tomography of the head was performed without contrast material. HISTORY: ? syncope, barnhart COMPARISON: No prior studies are available for comparison. FINDINGS: Skull and scalp: Normal. Paranasal sinuses: Normal. Ventricles and subarachnoid spaces: Normal. Cerebrum: An irregular 6 millimeter hypodense lesion is noted in the left centrum semiovale without a ny mass effect. An acute intra-axial or extra-axial hemorrhage is not identified.. Cerebellum and brainstem: No evidence of hemorrhage, acute infarction or mass. Vasculature: Normal. Comments: None. IMPRESSION: No acute intracranial abnormality A small irregular hypodense lesion of left centrum semiovale most likely represents an old infarct.
[2018-05-30 23:16] LABS: Hematocrit 32.1 % (30.3-42.9); Hemoglobin 10.2 gm/dl (10.1-14.3); Mean Corpuscular HGB Conc 32 % (30-34); Mean Corpuscular Volume 82 fl (79-97); Platelet Count 380 K/mm3 (140-440); Red Cell Distribution Width 17.4 % (13.2-15.2)
[2018-05-30 23:23] LABS: INR 1.02 (0.87-1.13)
[2018-05-31 01:06] LABS: Alanine Aminotransferase 20 units/L (7-56); BUN/Creatinine Ratio 14; Blood Urea Nitrogen 10 mg/dL (7-17); Calcium 11.3 mg/dL (8.4-10.2); Hemolysis Index 22
[2018-05-31 01:12] VITALS: BP 142/85
[2018-05-31] MEDS ORDERED: ZOSYN/NS 4.5GM/100ML 4.5 GM/100 ML VIAL IV ONE (01:28)
[2018-05-31] MEDS ORDERED: LEVAQUIN 750MG/150ML 750 MG/150 ML BAG IV ONE (01:28)
[2018-05-31 01:38] LABS: Creatine Kinase MB < 1.0 ng/mL (0.0-4.0)
[2018-05-31 02:17] LABS: Anisocytosis 1+; Band Neutrophils # (Manual) 0.2 K/mm3; Basophils % (Manual) 0 % (0.0-1.8); Total Cells Counted 100
[2018-05-31 02:18] LABS: Stomatocytes Few
== END 2018-05-31 02:30 | disposition home or self-care (01) ==
LOC: ED 20:54
DX: J95.03 Malfunction of tracheostomy stoma (principal); D72.829 Elevated white blood cell count, unspecified; J18.9 Pneumonia, unspecified organism
CPT/HCPCS: 36415; 70450; 71045; 80053; 82550; 82553; 83735; 84484; 85007; 85025; 85610; 85730; 93005; 93010; 94760; 99285; J2543; J1956